=== PATIENT | female | born 1945 | race Caucasian/White ===

== ENCOUNTER → 2017-01-18 | Outpatient (CLI) | payer MEDICARE, BC ==
--- NOTE | 2017-01-19 14:12 | MM ---
Reason for exam: screening (asymptomatic). Last mammogram was performed 1 year ago. History: Patient is postmenopausal and is nulliparous. Physical Findings: A clinical breast exam by your physician is recommended on an annual basis and results should be correlated with mammographic findings. MG 3D Screening Mammo W/Cad Bilateral CC and MLO view(s) were taken. Prior study comparison: January 14, 2016, mammogram, performed at [facility]. There are scattered fibroglandular densities. Finding: There are typically benign round calcifications in both breasts. There is a chronic nodularity in the left axilla. There is no discrete abnormality. ASSESSMENT: Benign, BI-RAD 2 RECOMMENDATION: Routine screening mammogram of both breasts in 1 year.
== END | disposition home or self-care (01) ==
LOC: RADMAMWWP 09:32
PROVIDERS: ATTEND Family Medicine
DX: Z12.31 Encounter for screening mammogram for malignant neoplasm of breast (principal)
CPT/HCPCS: 77063; G0202

== ENCOUNTER → 2017-03-13 | Outpatient (CLI) | payer MEDICARE, BC | END | disposition home or self-care (01) | LOC: LABWHC1 10:07 | PROVIDERS: ATTEND Internal Medicine Endocrinology, Diabetes & Metabolism | DX: E03.8 Other specified hypothyroidism (principal); E55.9 Vitamin D deficiency, unspecified | CPT/HCPCS: 36415; 82306; 84443 ==

== ENCOUNTER 2018-06-19 08:42 | Day surgery (SDC) | payer MEDICARE, BC ==
[2018-06-13 10:49] VITALS: BMI 34.0
[~2018-06-19 08:42] MED LIST: LACTATED RINGERS 1,000 ML IV SCH
[2018-06-19] MEDS: CYCLOPENTOLATE 1% OPHTH SOLN 2 ML BTL OP ONE ×3 (10:59→11:17)
[2018-06-19 11:01] VITALS: RESP 16; TEMP 97.8
[2018-06-19] MEDS: PHENYLEPHRINE 10% OPHTH DROPS 5 ML BTL OP ONE ×3 (11:02→11:20)
[2018-06-19] MEDS: KETOROLAC 0.5% OPHTH DROPS 5 ML BTL OP ONE ×3 (11:05→11:23)
[2018-06-19 11:09] LABS: Glucose,Whole Blood 116 mg/dL (75-99)
[2018-06-19] MEDS ORDERED: LIDOCAINE 1% INJ 10MG/ML (20 ML MDV) ONE (11:40)
[2018-06-19] MEDS ORDERED: PROPOFOL 10 MG/ML 20 ML VIAL IV ONE (11:40)
[2018-06-19] MEDS ORDERED: EPINEPHrine (PF) 0.5 ML in BALANCED SALT IRRIG SOLN COMB2 500 ML IRRIGATION ONE (11:53)
[2018-06-19] MEDS ORDERED: BALANCED SALT IRRIG SOLN COMB2 15 ML IRRIG.SOLN IRRIGATION ONE (11:53)
[2018-06-19] MEDS ORDERED: HYALURONATE SODIUM INTRAOCULAR 1 EACH SYRINGE (10MG/ML) INTRAOCULA ONE (11:54)
--- NOTE | 2018-06-19 12:06 | P.OP ---
Date of Procedure: 06/19/18 Procedure(s) Performed: PREOPERATIVE DIAGNOSIS: Cataract, right eye. POSTOPERATIVE DIAGNOSIS: Cataract, right eye. OPERATION: Phacoemulsification cataract, right eye. DESCRIPTION OF PROCEDURE: The patient was taken to the preoperative holding area. Intravenous Propofol was given so as to bring about adequate sedation. The following mixture was given for local anesthesia: 5 mL of 2% lidocaine, 5 mL of 0.75% Marcaine, and 1 mL of Wydase. Approximately 4 mL was injected in the retrobulbar space of the surgical eye. Additional 1 mL was then directed to the temporal area of the surgical eye. This was performed to allow adequate neurological block of the facial muscles. The patient was revived and then taken into the operative room. The patient was prepped and draped in the usual sterile manner for the operative eye. A lid speculum was put into position. The conjunctiva was resected back from the limbus in the 12 o'clock position. Bleeding was controlled with electrocautery. A #69 blade was then used and a half-thickness scleral incision approximately 1-mm posterior to the limbus was made on bare sclera. This was shelved in the clear cornea using a crescent knife. Next a 15-degree blade was used to make a stab incision at the 3 o' clock position at the corneolimbal interface. Keratome blade was then used and the superior wound was extended into the anterior chamber. Viscoelastic was injected into the anterior chamber and to maintain its form. Next, a cystotome was used and a continuous anterior capsulotomy was made without difficulty. Hydrodissection using a blunt cannula and BSS was performed. Phaco probe was then employed and a groove extending from 12 to 6 o'clock in the lens was created. A Dg wand was used through the stab incision so as to perform a divide and conquer technique. Next an irrigation aspiration probe was utilized and any residual cortex was removed from the eye. Again, viscoelastic was injected into the anterior chamber. An Steven posterior chamber lens implant was placed in the cartridge and injected into the anterior chamber without difficulty. The Sinskey hook was utilized to spin the lens into position. The irrigation and aspiration probe was again employed and any residual viscoelastic was removed from the eye. Then BSS was injected into the limbal stab incision and the anterior chamber re-inflated. The conjunctiva was reapproximated using electrocautery. One drop of 0.25% Timoptic was placed over the corneal along with TobraDex ophthalmic ointment. Two sterile patches and a Holland eye shield were taped into position. The patient was transported to the recovery room in stable condition. Pathology: none sent Condition: stable Disposition: same day
[2018-06-19 12:28] VITALS: BP 130/59; PULSE 60
[2018-06-19] MEDS ORDERED: TIMOLOL 0.5% OPHTH DROPS 5 ML BTL OP ONE (23:00)
[2018-06-19] MEDS ORDERED: BUPIVACAINE (PF) 0.75% 5 ML, HYALURONIDASE, HUMAN RECOMB 150 UNIT, LIDOCAINE 2% (PF) 10... MISCELLANE ONE ×3 (23:00)
[2018-06-19] MEDS ORDERED: GENTAMICIN/PREDNISOL AC OPHTH OINT 3.5GM OPHTHALMIC ONE (23:00)
== END 2018-06-19 12:49 | disposition home or self-care (01) ==
LOC: OR 08:42
PROVIDERS: ATTEND Ophthalmology
DX: H25.13 Age-related nuclear cataract, bilateral (principal); E11.9 Type 2 diabetes mellitus without complications; I10 Essential (primary) hypertension; E07.9 Disorder of thyroid, unspecified; F32.9 Major depressive disorder, single episode, unspecified; K21.9 Gastro-esophageal reflux disease without esophagitis; Z79.82 Long term (current) use of aspirin; Z79.890 Hormone replacement therapy; Z79.899 Other long term (current) drug therapy; Z88.8 Allergy status to other drugs, medicaments and biological substances
CPT/HCPCS: 66984; V2632; J3470; J2001 ×2; J0171; J2704

== ENCOUNTER → 2019-05-24 | Outpatient (CLI) | payer MEDICARE, BC ==
--- NOTE | 2019-05-24 18:50 | US ---
EXAMINATION TYPE: US pelvic limited DATE OF EXAM: 05/24/2019 COMPARISON: None CLINICAL HISTORY: R31.9 Hematuria. TECHNIQUE: Transabdominal (TA). Date of LMP: Patient states she has had a complete hysterectomy and oophorectomy when patient was in her late 20's EXAM MEASUREMENTS: 1. Bilateral Adnexa: wnl 2. Posterior cul-de-sac: wnl IMPRESSION: 1. Normal post hysterectomy and oophorectomy pelvic ultrasound
--- NOTE | 2019-05-27 07:23 | US ---
EXAMINATION TYPE: US kidneys/renal and bladder DATE OF EXAM: 05/24/2019 COMPARISON: NONE CLINICAL HISTORY: 73-year-old female R31.9 Hematuria. TECHNIQUE: Multiple sonographic images of the kidneys and bladder are obtained. FINDINGS: EXAM MEASUREMENTS: Right Kidney: 9.3 x 4.5 x 4.7 cm Left Kidney: 9.3 x 4.5 x 5.0 cm Right Kidney: No hydronephrosis. Left Kidney: No hydronephrosis. 0.4 x 0.2 x 0.4 echogenic focus at the mid pole, probable stone Bladder: Limited evaluation due to under distention. IMPRESSION: 1. No hydronephrosis. 2. 4 mm nonobstructive left midpole renal calculus. 3. Underdistention of the bladder limits its evaluation.
== END | disposition home or self-care (01) ==
LOC: RADUSWWP 14:29
PROVIDERS: ATTEND Family Medicine
DX: N20.0 Calculus of kidney (principal); Z90.710 Acquired absence of both cervix and uterus; Z90.722 Acquired absence of ovaries, bilateral
CPT/HCPCS: 76770; 76857

== ENCOUNTER → 2019-07-10 | Outpatient (CLI) | payer MEDICARE, BC ==
--- NOTE | 2019-07-10 09:17 | CT ---
EXAMINATION TYPE: CT urogram wo/w con DATE OF EXAM: 07/10/2019 COMPARISON: HISTORY: r flank pain hematuria CT DLP: 2512 mGycm CONTRAST: Performed and with IV Contrast, patient injected with 100 mL of Isovue 300. CT Urography was performed with unenhanced followed by enhanced images of the kidneys, ureters and ur inary bladder. Delayed images were obtained. 3d reconstruction was perfromed at a separate work sta tion. FINDINGS: KIDNEYS/BLADDER: No hydronephrosis. No nephrolithiasis. No solid renal lesions identified. Several subcentimeter simple appearing renal cysts noted. Urinary bladder grossly unremarkable. LUNG BASES-: No visible nodule. No infiltrate. LIVER/GB: No calcified gallstones. No space occupying hepatic lesion. Biliary tree is of normal ca liber. PANCREAS: No inflammation. No distinct mass. SPLEEN: No splenic enlargement. No lesion seen. ADRENALS: No nodule. No thickening. BOWEL: Normal appendix. Normal bowel caliber. No inflammation. Sigmoid diverticulosis without diver ticulitis. Fixed hiatal hernia noted small to moderate in size. GENITAL ORGANS: No gross abnormality. LYMPH NODES: No greater than 1cm abdominal or pelvic lymph nodes are appreciated. AORTA: No significant abnormality. OSSEOUS STRUCTURES: Severe degenerative change lumbar spine with vacuum disc noted at initially all l evels. Grade 1 anterolisthesis L5 on S1 of several millimeters. OTHER: No significant additional abnormality is seen. IMPRESSION: 1. No significant abnormality to account for the patient's symptoms of hematuria. Correlate clinicall y.
== END | disposition home or self-care (01) ==
LOC: RADCTMAIN 07:00
PROVIDERS: ATTEND Urology
DX: R31.0 Gross hematuria (principal); Z88.8 Allergy status to other drugs, medicaments and biological substances
CPT/HCPCS: 82565; 84520; 74178; 36415; 74400; Q9967

== ENCOUNTER → 2019-07-26 | Outpatient (CLI) | payer MEDICARE, BC ==
--- NOTE | 2019-07-26 13:38 | US ---
EXAMINATION TYPE: US thyroid st tissue head/neck DATE OF EXAM: 07/26/2019 COMPARISON: NONE CLINICAL HISTORY: E03.9 Hypothyroidism, unspecified. Hypothyroidism on meds for years. GLAND SIZE: Right Lobe: 2.4 x .5 x 1.1 cm Overall Parenchyma: heterogenous Left Lobe: 2.1 x .6 x 1.0 cm Overall Parenchyma: heterogeneous Isthmus Thickness: .2 cm NODULES RIGHT: # of nodules measured on right: 0 LEFT: # of nodules measured on left: 0 ISTHMUS: # of nodules measured in the isthmus: 0 Bilateral neck scanned, no evidence of lymphadenopathy. IMPRESSION: Thyroid lobes are diminutive in size and heterogenous. Correlate with thyroid function testing.
== END | disposition home or self-care (01) ==
LOC: RADUSWWP 13:11
PROVIDERS: ATTEND Family Medicine
DX: E03.9 Hypothyroidism, unspecified (principal)
CPT/HCPCS: 76536

== ENCOUNTER → 2019-10-07 | Outpatient (CLI) | payer MEDICARE, BC | END | disposition home or self-care (01) | LOC: LABWHC1 10:26 | PROVIDERS: ATTEND Internal Medicine Endocrinology, Diabetes & Metabolism | DX: E03.8 Other specified hypothyroidism (principal); E55.9 Vitamin D deficiency, unspecified | CPT/HCPCS: 36415; 82306; 84443 ==

== ENCOUNTER 2020-12-11 03:52 | Inpatient (IN) | payer MEDICARE, BC ==
--- NOTE | 2020-12-11 04:16 | ED ---
Altered Mental Status HPI - General Chief Complaint: Altered Mental Status Stated Complaint: Altered Mental Status Time Seen by Provider: 12/11/20 04:13 Source: family, EMS Mode of arrival: EMS Limitations: altered mental status - History of Present Illness Initial Comments: Patient is 75-year-old woman was reportedly brought to have evaluation for alte red mental status. It is reported that patient had developed upper respiratory symptoms and was seen for code test on Monday which was reportedly negative. She was reportedly given antibiotics to take for the respiratory infection. Over the course of tonight she has become disoriented and less responsive. Patient is not able to give any additional history. She does not know why she is here. MD Complaint: altered mental status, confusion -: hour(s) Consistency of Symptoms: getting worse Associated Symptoms: cough, fever/chills, shortness of breath - Related Data Home Medications Medication Instructions Recorded Confirmed Aspirin 81 mg PO DAILY 06/13/18 12/11/20 Citalopram Hydrobromide [CeleXA] 40 mg PO DAILY 06/13/18 12/11/20 Cyanocobalamin (Vitamin B-12) 5,000 mcg PO DAILY 06/13/18 12/11/20 [Vitamin B12] Levothyroxine Sodium [Synthroid] 88 mcg PO DAILY 06/13/18 12/11/20 Multivitamins, Thera [Multivitamin 1 tab PO DAILY 06/13/18 12/11/20 (formulary)] Omeprazole [PriLOSEC] 20 mg PO AC-BRKFST 06/13/18 12/11/20 Propranolol [Inderal] 10 mg PO BID 06/13/18 12/11/20 amLODIPine [Norvasc] 5 mg PO DAILY 06/13/18 12/11/20 busPIRone HCL 10 mg PO BID 06/13/18 12/11/20 lamoTRIgine [LaMICtal] 25 mg PO BID 06/13/18 12/11/20 Cholecalciferol [Vitamin D3 (25 50 mcg PO DAILY 12/11/20 12/11/20 Mcg = 1000 Iu)] Memantine [Namenda] 10 mg PO BID 12/11/20 12/11/20 Pioglitazone [Actos] 15 mg PO DAILY 12/11/20 12/11/20 QUEtiapine [SEROquel] 25 mg PO HS 12/11/20 12/11/20 Allergies Allergy/AdvReac Type Severity Reaction Status Date / Time Beta-Blockers AdvReac CHRONIC Verified 12/11/20 07:06 (Beta-Adrenergic Bloc COUGH Review of Systems ROS Statement: Those systems with pertinent positive or pertinent negative responses have been documented in the HPI. ROS Other: All systems not noted in ROS Statement are negative. Limitations: ROS unobtainable due to patients medical condition Constitutional: Reports: fever Respiratory: Reports: cough, dyspnea Past Medical History Past Medical History: Diabetes Mellitus, Hyperlipidemia, Hypertension, Osteoarthritis (OA), Thyroid Disorder Additional Past Medical History / Comment(s): TREMORS LEFT ARM , History of Any Multi-Drug Resistant Organisms: None Reported Past Surgical History: Bladder Surgery, Hysterectomy, Joint Replacement Additional Past Surgical History / Comment(s): TOTAL RIGHT KNEE, NECK SURGERY, Past Anesthesia/Blood Transfusion Reactions: No Reported Reaction Past Psychological History: Anxiety Past Alcohol Use History: Rare Past Drug Use History: None Reported - Past Family History Mother Family Medical History: No Reported History General Exam Limitations: language barrier, altered mental status General appearance: obtunded Head exam: Present: atraumatic, normocephalic Eye exam: Present: normal appearance. Absent: scleral icterus, conjunctival injection ENT exam: Present: normal oropharynx Neck exam: Present: normal inspection Respiratory exam: Present: rales. Absent: wheezes, rhonchi, stridor, accessory muscle use Cardiovascular Exam: Present: regular rate, normal rhythm, normal heart sounds. Absent: systolic murmur, diastolic murmur, rubs, gallop GI/Abdominal exam: Present: soft. Absent: distended, tenderness, guarding, rebound, rigid Extremities exam: Present: normal inspection, normal capillary refill. Absent: pedal edema, calf tenderness Back exam: Present: normal inspection Neurological exam: Present: altered, CN II-XII intact, other (The patient is not able to fully comply with neurologic exam however does move all 4 extremities and does not appear to have gross sensory deficit). Absent: oriented X3 (Patient is oriented to person only), motor sensory deficit Skin exam: Present: warm, dry, intact, normal color. Absent: rash Course Vital Signs 12/11/20 12/11/20 12/11/20 03:54 04:42 05:00 Temperature 101.7 F H 104.6 F H Pulse Rate 81 74 Respiratory 20 18 20 Rate Blood Pressure 143/93 O2 Sat by Pulse 91 L 99 Oximetry 12/11/20 05:58 Temperature 101.5 F H Pulse Rate 76 Respiratory 18 Rate Blood Pressure 108/90 O2 Sat by Pulse 92 L Oximetry - Reevaluation(s) Reevaluation #1: 12/11/20 06:06 Fluids based on ideal body weight Medical Decision Making - Lab Data Result diagrams: 12/11/20 04:41 12/11/20 04:41 Lab Results 12/11/20 12/11/20 12/11/20 Range/Units 04:15 04:41 04:41 WBC 9.5 (3.8-10.6) k/uL RBC 4.51 (3.80-5.40) m/uL Hgb 14.1 (11.4-16.0) gm/dL Hct 40.9 (34.0-46.0) % MCV 90.8 (80.0-100.0) fL MCH 31.2 (25.0-35.0) pg MCHC 34.4 (31.0-37.0) g/dL RDW 13.3 (11.5-15.5) % Plt Count 160 (150-450) k/uL MPV 7.8 Neutrophils % 80 % Lymphocytes % 12 % Monocytes % 7 % Eosinophils % 1 % Basophils % 0 % Neutrophils # 7.6 (1.3-7.7) k/uL Lymphocytes # 1.1 (1.0-4.8) k/uL Monocytes # 0.7 (0-1.0) k/uL Eosinophils # 0.1 (0-0.7) k/uL Basophils # 0.0 (0-0.2) k/uL PT 10.5 (9.0-12.0) sec INR 1.0 (<1.2) APTT 22.7 (22.0-30.0) sec D-Dimer (<0.60) mg/L FEU Sodium (137-145) mmol/L Potassium (3.5-5.1) mmol/L Chloride (98-107) mmol/L Carbon Dioxide (22-30) mmol/L Anion Gap mmol/L BUN (7-17) mg/dL Creatinine (0.52-1.04) mg/dL Est GFR (CKD-EPI)AfAm (>60 ml/min/1.73 sqM) Est GFR (CKD-EPI)NonAf (>60 ml/min/1.73 sqM) Glucose (74-99) mg/dL Plasma Lactic Acid Rk (0.7-2.0) mmol/L Calcium (8.4-10.2) mg/dL Total Bilirubin (0.2-1.3) mg/dL AST (14-36) U/L ALT (4-34) U/L Alkaline Phosphatase (38-126) U/L Troponin I 0.065 H* (0.000-0.034) ng/mL Total Protein (6.3-8.2) g/dL Albumin (3.5-5.0) g/dL Urine Color Urine Appearance (Clear) Urine pH (5.0-8.0) Ur Specific [place] (1.001-1.035) Urine Protein (Negative) Urine Glucose (UA) (Negative) Urine Ketones (Negative) Urine Blood (Negative) Urine Nitrite (Negative) Urine Bilirubin (Negative) Urine Urobilinogen (<2.0) mg/dL Ur Leukocyte Esterase (Negative) Coronavirus (PCR) (Not Detectd) 12/11/20 12/11/20 12/11/20 Range/Units 04:41 04:41 04:41 WBC (3.8-10.6) k/uL RBC (3.80-5.40) m/uL Hgb (11.4-16.0) gm/dL Hct (34.0-46.0) % MCV (80.0-100.0) fL MCH (25.0-35.0) pg MCHC (31.0-37.0) g/dL RDW (11.5-15.5) % Plt Count (150-450) k/uL MPV Neutrophils % % Lymphocytes % % Monocytes % % Eosinophils % % Basophils % % Neutrophils # (1.3-7.7) k/uL Lymphocytes # (1.0-4.8) k/uL Monocytes # (0-1.0) k/uL Eosinophils # (0-0.7) k/uL Basophils # (0-0.2) k/uL PT (9.0-12.0) sec INR (<1.2) APTT (22.0-30.0) sec D-Dimer (<0.60) mg/L FEU Sodium 132 L (137-145) mmol/L Potassium 4.1 (3.5-5.1) mmol/L Chloride 103 (98-107) mmol/L Carbon Dioxide 22 (22-30) mmol/L Anion Gap 7 mmol/L BUN 23 H (7-17) mg/dL Creatinine 0.89 (0.52-1.04) mg/dL Est GFR (CKD-EPI)AfAm 74 (>60 ml/min/1.73 sqM) Est GFR (CKD-EPI)NonAf 64 (>60 ml/min/1.73 sqM) Glucose 101 H (74-99) mg/dL Plasma Lactic Acid Rk 0.9 (0.7-2.0) mmol/L Calcium 8.3 L (8.4-10.2) mg/dL Total Bilirubin 0.6 (0.2-1.3) mg/dL AST 30 (14-36) U/L ALT 19 (4-34) U/L Alkaline Phosphatase 86 (38-126) U/L Troponin I (0.000-0.034) ng/mL Total Protein 6.2 L (6.3-8.2) g/dL Albumin 3.6 (3.5-5.0) g/dL Urine Color Light Yellow Urine Appearance Clear (Clear) Urine pH 7.5 (5.0-8.0) Ur Specific [place] 1.014 (1.001-1.035) Urine Protein Negative (Negative) Urine Glucose (UA) Negative (Negative) Urine Ketones Negative (Negative) Urine Blood Negative (Negative) Urine Nitrite Negative (Negative) Urine Bilirubin Negative (Negative) Urine Urobilinogen <2.0 (<2.0) mg/dL Ur Leukocyte Esterase Negative (Negative) Coronavirus (PCR) (Not Detectd) 12/11/20 12/11/20 Range/Units 04:41 04:45 WBC (3.8-10.6) k/uL RBC (3.80-5.40) m/uL Hgb (11.4-16.0) gm/dL Hct (34.0-46.0) % MCV (80.0-100.0) fL MCH (25.0-35.0) pg MCHC (31.0-37.0) g/dL RDW (11.5-15.5) % Plt Count (150-450) k/uL MPV Neutrophils % % Lymphocytes % % Monocytes % % Eosinophils % % Basophils % % Neutrophils # (1.3-7.7) k/uL Lymphocytes # (1.0-4.8) k/uL Monocytes # (0-1.0) k/uL Eosinophils # (0-0.7) k/uL Basophils # (0-0.2) k/uL PT (9.0-12.0) sec INR (<1.2) APTT (22.0-30.0) sec D-Dimer 0.48 (<0.60) mg/L FEU Sodium (137-145) mmol/L Potassium (3.5-5.1) mmol/L Chloride (98-107) mmol/L Carbon Dioxide (22-30) mmol/L Anion Gap mmol/L BUN (7-17) mg/dL Creatinine (0.52-1.04) mg/dL Est GFR (CKD-EPI)AfAm (>60 ml/min/1.73 sqM) Est GFR (CKD-EPI)NonAf (>60 ml/min/1.73 sqM) Glucose (74-99) mg/dL Plasma Lactic Acid Rk (0.7-2.0) mmol/L Calcium (8.4-10.2) mg/dL Total Bilirubin (0.2-1.3) mg/dL AST (14-36) U/L ALT (4-34) U/L Alkaline Phosphatase (38-126) U/L Troponin I (0.000-0.034) ng/mL Total Protein (6.3-8.2) g/dL Albumin (3.5-5.0) g/dL Urine Color Urine Appearance (Clear) Urine pH (5.0-8.0) Ur Specific [place] (1.001-1.035) Urine Protein (Negative) Urine Glucose (UA) (Negative) Urine Ketones (Negative) Urine Blood (Negative) Urine Nitrite (Negative) Urine Bilirubin (Negative) Urine Urobilinogen (<2.0) mg/dL Ur Leukocyte Esterase (Negative) Coronavirus (PCR) Detected A (Not Detectd) - EKG Data -: EKG Interpreted by Me EKG shows normal: sinus rhythm, axis (Normal), intervals (Normal), QRS complexes (Normal), ST-T waves (Normal) Rate: normal (Rate 78) Interpretation: normal EKG Disposition Clinical Impression: COVID-19, Acute delirium Disposition: ADMITTED IP TO THIS [facility] Condition: Fair
[2020-12-11] MEDS ORDERED: ACETAMINOPHEN TAB 325 MG TAB PO STA (04:48)
[2020-12-11 04:57] LABS: Basophils % (A) 0 %; Eosinophils # (A) 0.1 k/uL (0-0.7); Eosinophils % (A) 1 %; HCT 40.9 % (34.0-46.0); HGB 14.1 gm/dL (11.4-16.0); Lymphocytes # (A) 1.1 k/uL (1.0-4.8); Lymphocytes % (A) 12 %; MCH 31.2 pg (25.0-35.0); MCHC 34.4 g/dL (31.0-37.0); MCV 90.8 fL (80.0-100.0); Mean Platelet Volume 7.8; Monocytes # (A) 0.7 k/uL (0-1.0); Monocytes % (A) 7 %; Neutrophils # (A) 7.6 k/uL (1.3-7.7); Neutrophils % (A) 80 %; Platelet Count 160 k/uL (150-450); RBC 4.51 m/uL (3.80-5.40); RDW 13.3 % (11.5-15.5); WBC 9.5 k/uL (3.8-10.6)
--- NOTE | 2020-12-11 04:58 | XR ---
EXAM: XR Chest, 1 View CLINICAL HISTORY: Fever TECHNIQUE: Frontal view of the chest. COMPARISON: No relevant prior studies available. FINDINGS: Lungs: Mild diffuse airspace opacities in both lungs. Pleural space: Unremarkable. No pneumothorax. Heart: suspect cardiomegaly. Mediastinum: Unremarkable. Bones/joints: Osteopenia. ACDF of lower cervical spine. IMPRESSION: Mild pulmonary edema versus bilateral pneumonia
[2020-12-11 05:09] LABS: Albumin 3.6 g/dL (3.5-5.0); Calcium 8.3 mg/dL (8.4-10.2); Potassium 4.1 mmol/L (3.5-5.1); Total Bilirubin 0.6 mg/dL (0.2-1.3); Total Protein 6.2 g/dL (6.3-8.2)
[2020-12-11 05:10] LABS: Partial Thromboplastin Time 22.7 sec (22.0-30.0); Prothrombin Time 10.5 sec (9.0-12.0)
[2020-12-11 05:15] LABS: Appearance,Urine Clear (Clear); Bilirubin,Urine Negative (Negative); Blood,Urine Negative (Negative); Color,Urine Light Yellow; Glucose,Urine (UA) Negative (Negative); Ketones,Urine Negative (Negative); Leukocyte Esterase,Urine Negative (Negative); Nitrite,Urine Negative (Negative); PH, Urine 7.5 (5.0-8.0); Protein,Urine Negative (Negative); Specific Gravity,Urine 1.014 (1.001-1.035); Urobilinogen,Urine <2.0 mg/dL (<2.0)
[2020-12-11] MEDS ORDERED: SODIUM CHLORIDE 0.9% 1,000 ML IV ONE (06:06)
[2020-12-11] MEDS ORDERED: SODIUM CHLORIDE 0.9% 1,000 ML IV STA (06:06)
[2020-12-11] MEDS ORDERED: DEXAMETHASONE SOD PHOSPHATE 4 MG/ML 1 ML VIAL IV STA (06:10)
[2020-12-11] MEDS ORDERED: NALOXONE 0.4 MG/ML 1 ML VIAL IV PRN (06:33)
[2020-12-11] MEDS ORDERED: ACETAMINOPHEN TAB 325 MG TAB PO PRN (06:33)
[2020-12-11] MEDS ORDERED: HEPARIN SODIUM,PORCINE/PF 5,000 UNIT/0.5 ML SYRINGE SQ SCH (08:00)
[2020-12-11] MEDS: lamoTRIgine 25 MG TAB PO SCH ×2 (09:23→21:59)
[2020-12-11] MEDS: ASPIRIN 81 MG PO SCH (09:23)
[2020-12-11] MEDS: CITALOPRAM HYDROBROMIDE 20 MG TAB PO SCH (09:23)
[2020-12-11] MEDS: FAMOTIDINE 20 MG TAB PO SCH ×2 (09:23→21:57)
[2020-12-11] MEDS: LINAGLIPTIN 5 MG TABLET PO SCH (09:24)
[2020-12-11] MEDS: CHOLECALCIFEROL 25 MCG (1000 IU) TABLET PO SCH (09:24)
[2020-12-11] MEDS: LEVOTHYROXINE 88 MCG TAB PO SCH (09:24)
[2020-12-11] MEDS: DEXAMETHASONE SOD PHOSPHATE 10 MG/ML 1 ML VIAL IV SCH (09:24)
[2020-12-11] MEDS: MULTIVITAMINS, THERA 1 EACH TAB PO SCH (09:24)
[2020-12-11] MEDS: ATORVASTATIN 20 MG TAB PO SCH (09:24)
[2020-12-11] MEDS: busPIRone HCl 10 MG TAB PO SCH ×2 (09:24→21:59)
[2020-12-11] MEDS: amLODIPine 5 MG TAB PO SCH (09:24)
[2020-12-11] MEDS: CYANOCOBALAMIN 500 MCG TAB PO SCH (09:25)
[2020-12-11] MEDS: PROPRANOLOL 10 MG TAB PO SCH (09:25)
--- NOTE | 2020-12-11 15:35 | P.CNPUL ---
History of Present Illness Consult date: 12/11/20 Requesting physician: Cassius Forrest Reason for consult: other Chief complaint: Altered mental status History of present illness: 75-year-old white female patient who is a poor historian, with past medical history of hypertension, hyperlipidemia, diabetes mellitus, osteoarthritis, hypothyroidism, anxiety, who was brought into the emergency department on 12/11/2020 at 4:00 in the morning per EMS for evaluation of altered mental status. Apparently patient had developed upper respiratory symptoms and was tested for COVID 19 which was reportedly negative. She was given antibiotics for the infection, however she was increasingly more disoriented and last night she was less responsive and she was brought in to be evaluated. Patient tested positive for COVID 19 in the ER. CBC showed white blood cell count of 9.5, hemoglobin is 14.1, d-dimer is 0.48, sodium is 132, the rest of electrolytes were unremarkable, BUN is 23, creatinine is 0.89 plasma lactic acid 0.9. LFTs were within normal limits, there was a troponin leak of 0.065, and 0.062, patient denies any shortness of breath, she seems to be breathing comfortably, she is a poor historian, she is confused, she does not know the place or the mouth or the year or the president, no cough, lung sounds reveal some mild crackles, no wheezing, no cough no hemoptysis, urinalysis is without sign of infection. Patient is currently on 3 L of oxygen pulse ox is 93%. Patient was febrile on presentation with a T-max of 104.6F. Chest x-ray showed mild diffuse airspace opacities in both lungs. While she is resting fairly comfortably on the gurney in the emergency department awaiting a bed to go to medical surgical floor. Review of Systems ROS unobtainable: due to mental status All systems: negative Constitutional: Reports weakness, Denies chills, Denies fever Eyes: denies blurred vision, denies pain Ears, nose, mouth and throat: Denies headache, Denies sore throat Cardiovascular: Denies chest pain, Denies shortness of breath Respiratory: Reports cough Gastrointestinal: Denies abdominal pain, Denies diarrhea, Denies nausea, Denies vomiting Genitourinary: Denies dysuria, Denies hematuria Musculoskeletal: Denies myalgias Integumentary: Denies pruritus, Denies rash Neurological: Reports as per HPI, Reports change in mentation, Denies numbness, Denies weakness Psychiatric: Denies anxiety, Denies depression Endocrine: Denies fatigue, Denies weight change Past Medical History Past Medical History: Diabetes Mellitus, Hyperlipidemia, Hypertension, Osteoarthritis (OA), Thyroid Disorder Additional Past Medical History / Comment(s): TREMORS LEFT ARM , History of Any Multi-Drug Resistant Organisms: None Reported Past Surgical History: Bladder Surgery, Hysterectomy, Joint Replacement Additional Past Surgical History / Comment(s): TOTAL RIGHT KNEE, NECK SURGERY, Past Anesthesia/Blood Transfusion Reactions: No Reported Reaction Past Psychological History: Anxiety Past Alcohol Use History: Rare Past Drug Use History: None Reported - Past Family History Mother Family Medical History: No Reported History Medications and Allergies Home Medications Medication Instructions Recorded Confirmed Type Aspirin 81 mg PO DAILY 06/13/18 12/11/20 History Citalopram Hydrobromide [CeleXA] 40 mg PO DAILY 06/13/18 12/11/20 History Cyanocobalamin (Vitamin B-12) 5,000 mcg PO DAILY 06/13/18 12/11/20 History [Vitamin B12] Levothyroxine Sodium [Synthroid] 88 mcg PO DAILY 06/13/18 12/11/20 History Multivitamins, Thera [Multivitamin 1 tab PO DAILY 06/13/18 12/11/20 History (formulary)] Omeprazole [PriLOSEC] 20 mg PO AC-BRKFST 06/13/18 12/11/20 History Propranolol [Inderal] 10 mg PO BID 06/13/18 12/11/20 History amLODIPine [Norvasc] 5 mg PO DAILY 06/13/18 12/11/20 History busPIRone HCL 10 mg PO BID 06/13/18 12/11/20 History lamoTRIgine [LaMICtal] 25 mg PO BID 06/13/18 12/11/20 History Azithromycin [Zithromax Z-pack (6 See Taper PO DIRECTED 12/11/20 12/11/20 History tabs)] Cholecalciferol [Vitamin D3 (25 50 mcg PO DAILY 12/11/20 12/11/20 History Mcg = 1000 Iu)] Dexamethasone [Decadron] 6 mg PO DAILY 12/11/20 12/11/20 History Fluticasone/Umeclidin/Vilanter 1 puff INHALATION RT-DAILY 12/11/20 12/11/20 History [Trelegy Ellipta 100-62.5-25] Magnesium Oxide [Magox 400] 400 mg PO DAILY 12/11/20 12/11/20 History Memantine [Namenda] 10 mg PO BID 12/11/20 12/11/20 History Pioglitazone [Actos] 15 mg PO DAILY 12/11/20 12/11/20 History QUEtiapine [SEROquel] 25 mg PO HS 12/11/20 12/11/20 History Allergies Allergy/AdvReac Type Severity Reaction Status Date / Time Beta-Blockers AdvReac CHRONIC Verified 12/11/20 07:06 (Beta-Adrenergic Bloc COUGH Physical Exam Vitals: Vital Signs Temp Pulse Resp BP Pulse Ox 12/11/20 14:00 70 18 100/58 93 L 12/11/20 13:00 75 18 129/73 93 L 12/11/20 12:00 77 18 150/69 93 L 12/11/20 11:00 75 18 93 L 12/11/20 10:00 18 93 L 12/11/20 09:25 75 18 121/81 93 L 12/11/20 08:48 98.2 F 75 18 118/78 93 L 12/11/20 05:58 101.5 F H 76 18 108/90 92 L 12/11/20 05:00 20 12/11/20 04:42 104.6 F H 74 18 99 12/11/20 03:54 101.7 F H 81 20 143/93 91 L Intake and Output 12/11/20 12/11/20 12/11/20 06:59 14:59 22:59 Other: Weight 79.379 kg GENERAL EXAM: Alert, but confused, 75-year-old white female currently on 3 L of oxygen with a pulse ox of 93%, resting comfortably on the gurney, she is disoriented to place and the time, she cannot recall why she is in the hospital, but breathing comfortably, no cough comfortable in no apparent distress. HEAD: Normocephalic/atraumatic. EYES: Normal reaction of pupils, equal size. Conjunctiva pink, sclera white. NOSE: Clear with pink turbinates. THROAT: No erythema or exudates. NECK: No masses, no JVD, no thyroid enlargement, no adenopathy. CHEST: No chest wall deformity. Symmetrical expansion. LUNGS: Equal air entry with no crackles, wheeze, rhonchi or dullness. CVS: Regular rate and rhythm, normal S1 and S2, no gallops, no murmurs, no rubs ABDOMEN: Soft, nontender. No hepatosplenomegaly, normal bowel sounds, no guarding or rigidity. EXTREMITIES: No clubbing, no edema, no cyanosis, 2+ pulses and upper and lower extremities. MUSCULOSKELETAL: Muscle strength and tone normal. SPINE: No scoliosis or deformity SKIN: No rashes CENTRAL NERVOUS SYSTEM: Alert and oriented -1. No focal deficits, tone is normal in all 4 extremities. Results - Laboratory Findings CBC and BMP: 12/11/20 04:41 12/11/20 04:41 PT/INR, D-dimer PT 10.5 sec (9.0-12.0) 12/11/20 04:41 INR 1.0 (<1.2) 12/11/20 04:41 D-Dimer 0.48 mg/L FEU (<0.60) 12/11/20 04:41 Abnormal lab findings: Abnormal Labs 12/11/20 12/11/20 12/11/20 04:15 04:41 04:45 Sodium 132 L BUN 23 H Glucose 101 H Calcium 8.3 L Troponin I 0.065 H* Total Protein 6.2 L Coronavirus (PCR) Detected A 12/11/20 07:28 Sodium BUN Glucose Calcium Troponin I 0.062 H* Total Protein Coronavirus (PCR) - Diagnostic Findings Chest x-ray: report reviewed, image reviewed Assessment and Plan Plan: Assessment: #1. Altered mental status, of unclear etiology, we will obtain brain CT without contrast #2. Acute COVID 19 pneumonia with hypoxic respiratory failure, the onset of symptoms is unclear patient is a poor historian, she had a positive COVID 19 test last Monday 6 days ago after having symptoms of upper respiratory infection. The timeline of symptom onset is unclear #3. Mild troponin leak, echocardiogram is pending #4. Mild hyponatremia, possibly hypovolemic #5. Hypertension #6. Hyperlipidemia #7. Diabetes mellitus type 2 #9. Hypothyroidism #10. Osteoarthritis #11. Anxiety Plan: Timeline of symptom onset is unclear, although the patient did have positive COVID 19 test last Monday according to the ED documentation. Currently appears to be in no acute distress, chest x-ray reviewed showing mild diffuse airspace opacities, will continue with current treatment, continue Decadron, we'll switch the subcu heparin to Lovenox 40 mg, continue vitamins, obtain CT of the brain without. Continue monitoring for worsening dyspnea hypoxia. Pro- calcitonin is pending, echocardiogram is pending. Continue to follow I performed a history & physical examination of the patient and discussed their management with my nurse practitioner, Katiuska Keane. I reviewed the nurse practitioner's note and agree with the documented findings and plan of care. Lung sounds are positive for diminished breath sounds with minimal crackles at the bases. The findings and the impression was discussed with the patient. I attest to the documentation by the nurse practitioner. Time with Patient: Greater than 30
--- NOTE | 2020-12-11 16:21 | CT ---
EXAMINATION TYPE: CT brain wo con DATE OF EXAM: 12/11/2020 COMPARISON: None HISTORY: 75 year-old female confusion, Altered mental status TECHNIQUE: Examination was done in axial plane without intravenous contrast. Coronal and sagittal r econstructions performed. CT DLP: 1115.4 mGycm Automated exposure control for dose reduction was used. FINDINGS: There is no evidence of acute intracranial hemorrhage, acute ischemic changes, mass, mass-effect, or extra-axial fluid collection. There is no effacement of cerebral sulci or basal subarachnoid cister ns. There is no hydrocephalus. There is no midline shift. Plata-white matter distinction is preserv ed. Presacral thickening ethmoid air cells. Mastoid air cells are pneumatized. Partially empty sella. Pro static calcifications are mild in the carotid siphons. Moderate bifrontal atrophy. Moderate patchy white matter hypodensities in both cerebral hemispheres. IMPRESSION: Moderate bifrontal atrophy and moderate patchy burden of chronic small vessel ischemic disease. No ac sun'aq intracranial abnormality seen.
--- NOTE | 2020-12-11 16:41 | P.HPIM ---
History of Present Illness H&P Date: 12/11/20 Chief Complaint: Increase in confusion History of presenting complaint: This is a 75-year-old patient who follows with Dr. Kory Pearce. Chronic stable medical conditions include diabetes, hypertension, hyperlipidemia, prostatitis, hypothyroid. Patient has a baseline dementia. With cognitive impairment. 5 days ago on Monday patient is having upper respiratory tract infection symptoms. Apparently patient tested negative for COVID. Was given antibiotics to go home with. Last night patient became increasingly confused and less responsive. Brought into the ER. Patient is found to be a bit delirious with a fever up to 104.6. And pulse ox this morning was 92% on 3 L. Patient not able to give much of a history. Because underlying dementia. She is only able to answer simple questions. She does not know why she is or why she is here. When I walked in the room she was talking to her on the phone, making simple conversation Review of systems: GEN.: Tired febrile EYES: None HEENT: None NECK: None RESPIRATORY: Respiratory symptoms CARDIOVASCULAR: None GASTROINTESTINAL: None GENITOURINARY: None MUSCULOSKELETAL: Some joint pains LYMPHATICS: None HEMATOLOGICAL: None PSYCHIATRY: Confusion NEUROLOGICAL: None Past medical history to include: Diabetes, hypertension, hyperlipidemia, osteoarthritis, hypothyroid, tremor in the left arm, anxiety Social history: Lives with her . Smoking for over 40 years about quarter pack a day. Alcohol rarely. Family history: Patient cannot tell Physical examination: VITAL SIGNS: 104.6, 74, 18, 108/90, 92% on 3 L GENERAL: BMI 34.2, laying in bed, not in distress. EYES: Pupils equal. Conjunctiva normal. HEENT: External appearance of nose and ears normal, oral cavity grossly normal. NECK: JVD not raised; masses not palpable. HEART: First and second heart sounds are normal; no edema. LUNGS: Respiratory rate increased, diminished breath sounds prolonged expiration. ABDOMEN: Soft, nontender, liver spleen not palpable, no masses palpable. MUSCULAR skeletal: Evidence of OA PSYCH: Patient knows her name, does not know why she is a why she is herel. NEUROLOGICAL: Cranial nerves grossly intact; no facial asymmetry, power and sensation grossly intact. LYMPHATICS: No lymph nodes palpable in the axilla and neck INVESTIGATIONS, reviewed in the clinical context: WBC 9.5 hemoglobin 14.1 platelets 160 potassium 4.1 creatinine 0.89 Troponin I 0.065, 0.062, UA-negative Coronavirus [PCR]-detected EKG tracing personally reviewed by me-normal sinus rhythm, poor quality baseline Chest x-ray film personally reviewed by me-bilateral infiltrates Assessment and plan: -Acute bilateral COVID 19 pneumonia with symptoms starting about 6 days ago. Patient placed on IV Decadron subcu Lovenox vitamin C vitamin D Zinc Pepcid. Pulmonary was consulted -Sepsis from COVID 19 pneumonia IV fluids -Acute hypoxic respiratory failure from pneumonia Patient on 2 L of supplemental oxygen -Acute delirium from sepsis Follow closely -Major cognitive impairment from underlying Alzheimer's dementia late onset type Continue with Namenda Seroquel -COPD in a current smoker Continue with home inhalers bronchodilators -Chronic nicotine dependence patient cigarette smoker At nicotine patch -Diabetes mellitus type 2 on oral hypoglycemic Expect Accu-Cheks to climb because of dexamethasone. Follow Accu-Cheks and coverage -Hypothyroid Continue with Synthroid -Essential hypertension Continue with amlodipine and propofol Patient be admitted to the hospital. Fall precautions. Given the complexity and severity of patient's condition expect the patient to be in the hospital at least for 2 overnights Past Medical History Past Medical History: Diabetes Mellitus, Hyperlipidemia, Hypertension, Osteoarthritis (OA), Thyroid Disorder Additional Past Medical History / Comment(s): TREMORS LEFT ARM , History of Any Multi-Drug Resistant Organisms: None Reported Past Surgical History: Bladder Surgery, Hysterectomy, Joint Replacement Additional Past Surgical History / Comment(s): TOTAL RIGHT KNEE, NECK SURGERY, Past Anesthesia/Blood Transfusion Reactions: No Reported Reaction Past Psychological History: Anxiety Past Alcohol Use History: Rare Past Drug Use History: None Reported - Past Family History Mother Family Medical History: No Reported History Medications and Allergies Home Medications Medication Instructions Recorded Confirmed Type Aspirin 81 mg PO DAILY 06/13/18 12/11/20 History Citalopram Hydrobromide [CeleXA] 40 mg PO DAILY 06/13/18 12/11/20 History Cyanocobalamin (Vitamin B-12) 5,000 mcg PO DAILY 06/13/18 12/11/20 History [Vitamin B12] Levothyroxine Sodium [Synthroid] 88 mcg PO DAILY 06/13/18 12/11/20 History Multivitamins, Thera [Multivitamin 1 tab PO DAILY 06/13/18 12/11/20 History (formulary)] Omeprazole [PriLOSEC] 20 mg PO AC-BRKFST 06/13/18 12/11/20 History Propranolol [Inderal] 10 mg PO BID 06/13/18 12/11/20 History amLODIPine [Norvasc] 5 mg PO DAILY 06/13/18 12/11/20 History busPIRone HCL 10 mg PO BID 06/13/18 12/11/20 History lamoTRIgine [LaMICtal] 25 mg PO BID 06/13/18 12/11/20 History Azithromycin [Zithromax Z-pack (6 See Taper PO DIRECTED 12/11/20 12/11/20 History tabs)] Cholecalciferol [Vitamin D3 (25 50 mcg PO DAILY 12/11/20 12/11/20 History Mcg = 1000 Iu)] Dexamethasone [Decadron] 6 mg PO DAILY 12/11/20 12/11/20 History Fluticasone/Umeclidin/Vilanter 1 puff INHALATION RT-DAILY 12/11/20 12/11/20 History [Trelegy Ellipta 100-62.5-25] Magnesium Oxide [Magox 400] 400 mg PO DAILY 12/11/20 12/11/20 History Memantine [Namenda] 10 mg PO BID 12/11/20 12/11/20 History Pioglitazone [Actos] 15 mg PO DAILY 12/11/20 12/11/20 History QUEtiapine [SEROquel] 25 mg PO HS 12/11/20 12/11/20 History Allergies Allergy/AdvReac Type Severity Reaction Status Date / Time Beta-Blockers AdvReac CHRONIC Verified 12/11/20 07:06 (Beta-Adrenergic Bloc COUGH Physical Exam Vitals: Vital Signs Temp Pulse Resp BP Pulse Ox 12/11/20 09:25 75 18 121/81 93 L 12/11/20 08:48 98.2 F 75 18 118/78 93 L 12/11/20 05:58 101.5 F H 76 18 108/90 92 L 12/11/20 05:00 20 12/11/20 04:42 104.6 F H 74 18 99 12/11/20 03:54 101.7 F H 81 20 143/93 91 L Intake and Output 12/10/20 12/11/20 12/11/20 22:59 06:59 14:59 Other: Weight 79.379 kg Results CBC & Chem 7: 12/11/20 04:41 12/11/20 04:41 Labs: Abnormal Lab Results - Last 24 Hours (Table) 12/11/20 12/11/20 12/11/20 Range/Units 04:15 04:41 04:45 Sodium 132 L (137-145) mmol/L BUN 23 H (7-17) mg/dL Glucose 101 H (74-99) mg/dL Calcium 8.3 L (8.4-10.2) mg/dL Troponin I 0.065 H* (0.000-0.034) ng/mL Total Protein 6.2 L (6.3-8.2) g/dL Coronavirus (PCR) Detected A (Not Detectd) 12/11/20 Range/Units 07:28 Sodium (137-145) mmol/L BUN (7-17) mg/dL Glucose (74-99) mg/dL Calcium (8.4-10.2) mg/dL Troponin I 0.062 H* (0.000-0.034) ng/mL Total Protein (6.3-8.2) g/dL Coronavirus (PCR) (Not Detectd)
[2020-12-11] MEDS: ASCORBIC ACID 500 MG TAB PO SCH (18:04)
[2020-12-11] MEDS: ZINC SULFATE 220 MG CAP PO SCH (18:04)
[2020-12-11] MEDS: SODIUM CHLORIDE 0.9% 1,000 ML IV SCH (18:04)
--- NOTE | 2020-12-11 18:30 | ECHOF ---
Referral Reason:pos troponin MEASUREMENTS -------- HEIGHT: 152.4 cm WEIGHT: 79.4 kg BP: 100/58 IVSd: 1.3 cm (0.6 - 1.1) LVIDd: 4.1 cm (3.9 - 5.3) LVPWd: 1.2 cm (0.6 - 1.1) IVSs: 1.9 cm LVIDs: 2.7 cm LVPWs: 1.8 cm LAESV Index (A-L): 32.98 ml/m MV E Oliverio: 0.81 m/s MV DecT: 227 ms MV A Oliverio: 0.94 m/s MV E/A Ratio: 0.87 RAP: 5.00 mmHg RVSP: 13.29 mmHg FINDINGS -------- Sinus rhythm. This was a technically difficult study with suboptimal views. The left ventricular size is normal. There is mild concentric left ventricular hypertrophy. Overa ll left ventricular systolic function is normal with, an EF between 55 - 60 %. The diastolic fillin g pattern is normal for the age of the patient 14.10. The right ventricle is normal in size. LA is midly dilated 29-33ml/m2. The right atrial size is normal. Lumason used Interatrial and interventricular septum intact. There is no evidence of aortic regurgitation. There is no evidence of aortic stenosis. Mild mitral regurgitation is present. Mild tricuspid regurgitation present. There is no evidence of pulmonary hypertension. The right v entricular systolic pressure, as measured by Doppler, is 13.29mmHg. There is no pulmonic regurgitation present. The aortic root size is normal. IVC Not well visulized. There is no pericardial effusion. CONCLUSIONS -------- 1. The left ventricular size is normal. 2. There is mild concentric left ventricular hypertrophy. 3. Overall left ventricular systolic function is normal with, an EF between 55 - 60 %. 4. The diastolic filling pattern is normal for the age of the patient 14.10 5. LA is midly dilated 29-33ml/m2. 6. Mild mitral regurgitation is present. 7. Mild tricuspid regurgitation present. COPPER TAPPER: Sarina Staples [facility]
[2020-12-11 21:29] LABS: Glucose,Whole Blood 184 mg/dL (75-99)
[2020-12-12] MEDS: SODIUM CHLORIDE 0.9% 1,000 ML IV SCH ×4 (01:08→23:06)
[2020-12-12 06:17] LABS: Glucose,Whole Blood 134 mg/dL (75-99)
[2020-12-12] MEDS: LEVOTHYROXINE 88 MCG TAB PO SCH (06:33)
[2020-12-12] MEDS: amLODIPine 5 MG TAB PO SCH (08:43)
[2020-12-12] MEDS: ENOXAPARIN 40 MG/0.4 ML SYRINGE SQ SCH (08:43)
[2020-12-12] MEDS: busPIRone HCl 10 MG TAB PO SCH ×2 (08:43→20:45)
[2020-12-12] MEDS: ATORVASTATIN 20 MG TAB PO SCH (08:43)
[2020-12-12] MEDS: FAMOTIDINE 20 MG TAB PO SCH ×2 (08:44→20:45)
[2020-12-12] MEDS: lamoTRIgine 25 MG TAB PO SCH ×2 (08:44→20:45)
[2020-12-12] MEDS: DEXAMETHASONE SOD PHOSPHATE 10 MG/ML 1 ML VIAL IV SCH (08:44)
[2020-12-12] MEDS: ASCORBIC ACID 500 MG TAB PO SCH (08:44)
[2020-12-12] MEDS: CHOLECALCIFEROL 25 MCG (1000 IU) TABLET PO SCH (08:44)
[2020-12-12] MEDS: CYANOCOBALAMIN 500 MCG TAB PO SCH (08:44)
[2020-12-12] MEDS: LINAGLIPTIN 5 MG TABLET PO SCH (08:44)
[2020-12-12] MEDS: ASPIRIN 81 MG PO SCH (08:44)
[2020-12-12] MEDS: CITALOPRAM HYDROBROMIDE 20 MG TAB PO SCH (08:44)
[2020-12-12] MEDS: PROPRANOLOL 10 MG TAB PO SCH ×2 (08:44→20:45)
[2020-12-12] MEDS: MULTIVITAMINS, THERA 1 EACH TAB PO SCH (08:47)
[2020-12-12] MEDS: ZINC SULFATE 220 MG CAP PO SCH (08:47)
--- NOTE | 2020-12-12 10:46 | P.PN ---
Subjective Progress Note Date: 12/12/20 This is a 75-year-old female with past medical history significant for hypertension, hyperlipidemia, diabetes, osteoarthritis, hypothyroidism, anxiety, overall is a poor historian, she was brought to the emergency department yesterday morning for evaluation of altered mental status. The patient did develop upper respiratory symptoms and was tested for coated 19 which was reportedly negative. She was given antibiotics for the infection however she was increasingly more disoriented and unresponsive, upon presentation to the emergency room she tested positive for cold and 19 in the ER. Her temperature on arrival here was 101.7, subsequent temperature 104.6 blood pressure 140/90 with a heart rate in the 80s, she was 91% on 2 L of oxygen on presentation here. White blood cell count 9.5, hemoglobin 14.1, platelet count 160. D-dimer 0.4, repeat d-dimer 1.08. Sodium 132, potassium 4.1, BUN 23, creatinine 0.8. Troponins 0.065, 0.062. At the time of my examination, patient seems to be breathing comfortably, she is confused, denies any chest discomfort. Chest x- ray on presentation here showed mild diffuse airspace [place] within both lungs. Her EKG showed normal sinus rhythm with no acute changes. Echocardiogram with Doppler study was performed which revealed an ejection fraction of 55-60%. CAT scan of the brain was also performed which revealed moderate bifrontal atrophy and moderate patchy burden of chronic small vessel ischemic disease with no acute abnormality seen. Objective - Vital Signs Vital signs: Vital Signs Temp 98.3 F 12/12/20 08:00 Pulse 68 12/12/20 08:00 Resp 20 12/12/20 08:00 BP 148/76 12/12/20 08:00 Pulse Ox 93 L 12/12/20 08:00 Intake & Output 12/11/20 12/12/20 12/12/20 18:59 06:59 18:59 Intake Total 475 0 Balance 475 0 Weight 79.3 kg Intake: Oral 475 0 Other: Voiding Method Bedpan Bedpan # Voids 2 # Bowel Movements 2 - Exam GENERAL EXAM: Alert, but confused, 75-year-old white female currently on 3 L of oxygen with a pulse ox of 93%, resting comfortably in bed , she is disoriented to place and the time, she cannot recall why she is in the hospital, but breathing comfortably, no cough comfortable in no apparent distress. HEAD: Normocephalic/atraumatic. EYES: Normal reaction of pupils, equal size. Conjunctiva pink, sclera white. NOSE: Clear with pink turbinates. THROAT: No erythema or exudates. NECK: No masses, no JVD, no thyroid enlargement, no adenopathy. CHEST: No chest wall deformity. Symmetrical expansion. LUNGS: Equal air entry with no crackles, wheeze, rhonchi or dullness. CVS: Regular rate and rhythm, normal S1 and S2, no gallops, no murmurs, no rubs ABDOMEN: Soft, nontender. No hepatosplenomegaly, normal bowel sounds, no guarding or rigidity. EXTREMITIES: No clubbing, no edema, no cyanosis, 2+ pulses and upper and lower extremities. MUSCULOSKELETAL: Muscle strength and tone normal. SPINE: No scoliosis or deformity SKIN: No rashes CENTRAL NERVOUS SYSTEM: Alert and oriented -1. No focal deficits, tone is normal in all 4 extremities. - Labs CBC & Chem 7: 12/11/20 04:41 12/11/20 04:41 Labs: Abnormal Lab Results - Last 24 Hours (Table) 12/11/20 12/12/20 12/12/20 Range/Units 21:28 06:14 08:48 D-Dimer 1.08 H (<0.60) mg/L FEU POC Glucose (mg/dL) 184 H 134 H (75-99) mg/dL C-Reactive Protein (<10.0) mg/L 12/12/20 Range/Units 08:48 D-Dimer (<0.60) mg/L FEU POC Glucose (mg/dL) (75-99) mg/dL C-Reactive Protein 74.6 H (<10.0) mg/L Microbiology - Last 24 Hours (Table) 12/11/20 04:45 Blood Culture - Preliminary Blood No Growth after 24 hours 12/11/20 04:30 Blood Culture - Preliminary Blood No Growth after 24 hours Assessment and Plan Plan: Assessment and plan #1 altered mental status, CT of the brain did not reveal any acute finding #2 acute: 19 pneumonia with hypoxic respiratory failure #3 abnormality in troponin, likely secondary to Covid infection, no significant rise and fall pattern, echo revealed normal left ventricular systolic function. #4 hypertension #5 hyperlipidemia #6 diabetes #7 hypothyroidism #8 dementia #9 anxiety Plan From cardiology's perspective, the abnormality in troponin is likely secondary to the patient's Covid 19 infection. We'll continue the patient on her current medications. We will follow her along with you on an as-needed basis only, please don't hesitate to call if you have any questions. DNP note has been reviewed, I agree with a documented findings and plan of care. Patient was seen and examined.
[2020-12-12 11:47] LABS: Glucose,Whole Blood 128 mg/dL (75-99)
[2020-12-12] MEDS ORDERED: risperiDONE 0.25 MG TAB PO STA (13:24)
--- NOTE | 2020-12-12 15:58 | P.PN ---
Subjective Progress Note Date: 12/12/20 Principal diagnosis: Mental status changes. 75-year-old white female patient who is a poor historian, with past medical history of hypertension, hyperlipidemia, diabetes mellitus, osteoarthritis, hypothyroidism, anxiety, who was brought into the emergency department on 12/11/2020 at 4:00 in the morning per EMS for evaluation of altered mental status. Apparently patient had developed upper respiratory symptoms and was tested for COVID 19 which was reportedly negative. She was given antibiotics for the infection, however she was increasingly more disoriented and last night she was less responsive and she was brought in to be evaluated. Patient tested positive for COVID 19 in the ER. CBC showed white blood cell count of 9.5, hemoglobin is 14.1, d-dimer is 0.48, sodium is 132, the rest of electrolytes were unremarkable, BUN is 23, creatinine is 0.89 plasma lactic acid 0.9. LFTs were within normal limits, there was a troponin leak of 0.065, and 0.062, patient denies any shortness of breath, she seems to be breathing comfortably, she is a poor historian, she is confused, she does not know the place or the mouth or the year or the president, no cough, lung sounds reveal some mild crackles, no wheezing, no cough no hemoptysis, urinalysis is without sign of inf ection. Patient is currently on 3 L of oxygen pulse ox is 93%. Patient was febrile on presentation with a T-max of 104.6F. Chest x-ray showed mild diffuse airspace opacities in both lungs. While she is resting fairly comfortably on the gurney in the emergency department awaiting a bed to go to medical surgical floor. Progress note dated 12/12/2020. This is a 75-year-old female who was seen by our team yesterday for evaluation. She is a very poor historian, and is very confused. She has a history of hypertension diabetes, hyperlipidemia, osteoarthritis, hypothyroidism, and anxiety. She was brought into the emergency department by EMS for altered mental status. Apparently, the patient developed upper respiratory tract symptoms, and was tested for coronavirus, and apparently initially tested negative. In the ER, on this admission, the patient did test positive. She is very confused. She has a sitter in the room. She is on 3 L nasal cannula. She is not manifesting any signs or symptoms of respiratory distress. Labs today include a d-dimer which is 1.08, a glucose which is 128, and a C-reactive protein which is 75. Computed tomography scan of the brain showed moderate bifrontal atrophy and moderate patchy small vessel ischemic changes. Chest x- ray shows patchy bilateral infiltrates. Objective - Vital Signs Vital signs: Vital Signs Temp 97.5 F L 12/12/20 12:00 Pulse 66 12/12/20 12:00 Resp 20 12/12/20 12:00 BP 126/58 12/12/20 12:00 Pulse Ox 92 L 12/12/20 12:00 Intake & Output 12/11/20 12/12/20 12/12/20 18:59 06:59 18:59 Intake Total 475 180 Output Total 300 Balance 475 -120 Weight 79.3 kg Intake: Oral 475 180 Output: Urine 300 Other: Voiding Method Bedpan Bedpan # Voids 2 # Bowel Movements 2 1 - Exam Very confused, speaking gibberish. Patient is on 3 L nasal cannula. Saturations are in the low to mid 90s. HEENT examination is grossly unremarkable. Neck supple. Full range of motion. No adenopathy thyromegaly or neck vein distention. Cardiovascular examination reveals regular rhythm rate. S1-S2 normal. No S3 or S4. No discernible murmur noted. Heart rate is 66 bpm. Lungs reveal mostly clear breath sounds. A few scattered rhonchi are noted. No wheezes. No crackles. Breath sounds equal bilaterally.. Abdomen soft bowel sounds are heard. No masses or tenderness. Extremities are intact. No cyanosis clubbing or edema. Skin is without rash or lesion. Neurologic examination is brief but nonfocal. - Labs CBC & Chem 7: 12/11/20 04:41 12/11/20 04:41 Labs: Abnormal Lab Results - Last 24 Hours (Table) 12/11/20 12/12/20 12/12/20 Range/Units 21:28 06:14 08:48 D-Dimer 1.08 H (<0.60) mg/L FEU POC Glucose (mg/dL) 184 H 134 H (75-99) mg/dL C-Reactive Protein (<10.0) mg/L 12/12/20 12/12/20 Range/Units 08:48 11:42 D-Dimer (<0.60) mg/L FEU POC Glucose (mg/dL) 128 H (75-99) mg/dL C-Reactive Protein 74.6 H (<10.0) mg/L Microbiology - Last 24 Hours (Table) 12/11/20 04:45 Blood Culture - Preliminary Blood No Growth after 24 hours 12/11/20 04:30 Blood Culture - Preliminary Blood No Growth after 24 hours Assessment and Plan Assessment: #1. Altered mental status, of unclear etiology, we will obtain brain CT without contrast #2. Acute COVID 19 pneumonia with hypoxic respiratory failure, the onset of symptoms is unclear. Patient is a poor historian, she had a positive COVID 19 test last Monday 6 days ago after having symptoms of upper respiratory infection. The timeline of symptom onset is unclear #3. Mild troponin leak, echocardiogram is pending #4. Mild hyponatremia, possibly hypovolemic #5. Hypertension #6. Hyperlipidemia #7. Diabetes mellitus type 2 #9. Hypothyroidism #10. Osteoarthritis #11. Anxiety Plan: Plan dated 12/12/2020. The patient is very confused and disoriented. She really wasn't making much sense and could not really provide any additional history. She was telling me that she feels just fine. She was on 3 L. The patient was maintained on Lovenox, and Decadron.. We'll make sure that we give her typical vitamins incl uding vitamin C, vitamin D3, and zinc. Additional recommendations suggestions are forthcoming. Prognosis is guarded. Time with Patient: Less than 30
[2020-12-12 16:45] LABS: Glucose,Whole Blood 159 mg/dL (75-99)
[2020-12-12 20:32] LABS: Glucose,Whole Blood 140 mg/dL (75-99)
[2020-12-12] MEDS: risperiDONE 0.5 MG TAB PO SCH (20:45)
[2020-12-12] MEDS ORDERED: HALOPERIDOL LACTATE 5 MG/ML 1 ML VIAL IM ONE (21:19)
--- NOTE | 2020-12-12 22:23 | P.PN ---
Progress Note - Text Progress Note Date: 12/12/20 Chief Complaint: Increase in confusion History of presenting complaint: This is a 75-year-old patient who follows with Dr. Kory Pearce. Chronic stable medical conditions include diabetes, hypertension, hyperlipidemia, prostatitis, hypothyroid. Patient has a baseline dementia. With cognitive impairment. 5 days ago on Monday patient is having upper respiratory tract infection symptoms. Apparently patient tested negative for COVID. Was given antibiotics to go home with. Last night patient became increasingly confused and less responsive. Brought into the ER. Patient is found to be a bit delirious with a fever up to 104.6. And pulse ox this morning was 92% on 3 L. Patient not able to give much of a history. Because underlying dementia. She is only able to answer simple questions. She does not know why she is or why she is here. When I walked in the room she was talking to her on the phone, making simple conversation Admitted with bilateral COVID 19 pneumonia, acute hypoxic respiratory failure, sepsis, acute delirium. Started on IV dexamethasone, subcu Lovenox. Today: Patient somewhat agitated. Does not want to stay in the hospital. Has a sitter. Not eating much. 3 L nasal cannula Review of systems: Attempted for constitutional, cardiovascular, GI, pulmonary. relevant finding as above Active Medications Acetaminophen (Acetaminophen Tab 325 Mg Tab) 650 mg PO Q6HR PRN PRN Reason: Mild Pain or Fever > 100.5 Amlodipine Besylate (Amlodipine 5 Mg Tab) 5 mg PO DAILY [facility] Last Admin: 12/12/20 08:43 Dose: 5 mg Documented by: Ascorbic Acid (Ascorbic Acid 500 Mg Tab) 1,000 mg PO DAILY [facility] Last Admin: 12/12/20 08:44 Dose: 1,000 mg Documented by: Aspirin (Aspirin 81 Mg) 81 mg PO DAILY [facility] Last Admin: 12/12/20 08:44 Dose: 81 mg Documented by: Atorvastatin Calcium (Atorvastatin 20 Mg Tab) 20 mg PO DAILY [facility] Last Admin: 12/12/20 08:43 Dose: 20 mg Documented by: Buspirone HCl (Buspirone Hcl 10 Mg Tab) 10 mg PO BID [facility] Last Admin: 12/12/20 20:45 Dose: 10 mg Documented by: Cholecalciferol (Cholecalciferol 25 Mcg (1000 Iu) Tablet) 25 mcg PO DAILY [facility] Last Admin: 12/12/20 08:44 Dose: 25 mcg Documented by: Citalopram Hydrobromide (Citalopram Hydrobromide 20 Mg Tab) 40 mg PO DAILY [facility] Last Admin: 12/12/20 08:44 Dose: 40 mg Documented by: Cyanocobalamin (Cyanocobalamin 500 Mcg Tab) 5,000 mcg PO DAILY [facility] Last Admin: 12/12/20 08:44 Dose: 5,000 mcg Documented by: Dexamethasone Sodium Phosphate (Dexamethasone Sod Phosphate 10 Mg/Ml 1 Ml Vial) 6 mg IV DAILY [facility] Last Admin: 12/12/20 08:44 Dose: 6 mg Documented by: Enoxaparin Sodium (Enoxaparin 40 Mg/0.4 Ml Syringe) 40 mg SQ DAILY [facility] Last Admin: 12/12/20 08:43 Dose: 40 mg Documented by: Famotidine (Famotidine 20 Mg Tab) 20 mg PO BID [facility] Last Admin: 12/12/20 20:45 Dose: 20 mg Documented by: Sodium Chloride (Saline 0.9%) 1,000 mls @ 130 mls/hr IV .Q7H42M [facility] Last Admin: 12/12/20 17:09 Dose: 130 mls/hr Documented by: Lamotrigine (Lamotrigine 25 Mg Tab) 25 mg PO BID [facility] Last Admin: 12/12/20 20:45 Dose: 25 mg Documented by: Levothyroxine Sodium (Levothyroxine 88 Mcg Tab) 88 mcg PO DAILY@0630 [facility] Last Admin: 12/12/20 06:33 Dose: 88 mcg Documented by: Linagliptin (Linagliptin 5 Mg Tablet) 5 mg PO DAILY [facility] Last Admin: 12/12/20 08:44 Dose: 5 mg Documented by: Multivitamins (Multivitamins, Thera 1 Each Tab) 1 each PO DAILY [facility] Last Admin: 12/12/20 08:47 Dose: 1 each Documented by: Naloxone HCl (Naloxone 0.4 Mg/Ml 1 Ml Vial) 0.2 mg IV Q2M PRN PRN Reason: Opioid Reversal Propranolol HCl (Propranolol 10 Mg Tab) 10 mg PO BID [facility] Last Admin: 12/12/20 20:45 Dose: 10 mg Documented by: Risperidone (Risperidone 0.5 Mg Tab) 0.5 mg PO BID [facility] Last Admin: 12/12/20 20:45 Dose: 0.5 mg Documented by: Zinc Sulfate (Zinc Sulfate 220 Mg Cap) 220 mg PO DAILY [facility] Last Admin: 12/12/20 08:47 Dose: 220 mg Documented by: Past medical history to include: Diabetes, hypertension, hyperlipidemia, osteoarthritis, hypothyroid, tremor in the left arm, anxiety Social history: Lives with her . Smoking for over 40 years about quarter pack a day. Alcohol rarely. Family history: Patient cannot tell Physical examination: VITAL SIGNS: 97.5, 66, 20, 126/58, 92% on 3 L GENERAL: Sitting up in bed, somewhat agitated LUNGS: Respiratory rate increased, . PSYCH: Disoriented. NEUROLOGICAL: Cranial nerves grossly intact; no facial asymmetry, moving all 4 limbs Rest of the exam as per pulmonary INVESTIGATIONS, reviewed in the clinical context: December 12: D-dimer 1.08 CRP 74.6 WBC 9.5 hemoglobin 14.1 platelets 160 potassium 4.1 creatinine 0.89 Troponin I 0.065, 0.062, UA-negative Coronavirus [PCR]-detected EKG tracing personally reviewed by me-normal sinus rhythm, poor quality baseline Chest x-ray film personally reviewed by me-bilateral infiltrates Assessment and plan: -Acute bilateral COVID 19 pneumonia with symptoms starting about 6 days ago. IV Decadron subcu Lovenox vitamin C vitamin D Zinc Pepcid. -Sepsis from COVID 19 pneumonia IV fluids -Acute hypoxic respiratory failure from pneumonia-worsening 3 L of supplemental oxygen -Acute delirium from sepsis Follow closely -Major cognitive impairment from underlying Alzheimer's dementia late onset type Continue with Loreta Travis -COPD in a current smoker Continue with home inhalers bronchodilators -Chronic nicotine dependence patient cigarette smoker At nicotine patch -Diabetes mellitus type 2 on oral hypoglycemic Expect Accu-Cheks to climb because of dexamethasone. Follow Accu-Cheks and coverage -Hypothyroid Continue with Synthroid -Essential hypertension Continue with amlodipine and propofol Patient has a sitter. Continue current medications.
[2020-12-13 06:26] LABS: Glucose,Whole Blood 105 mg/dL (75-99)
[2020-12-13] MEDS: LEVOTHYROXINE 88 MCG TAB PO SCH (06:29)
[2020-12-13] MEDS: ZINC SULFATE 220 MG CAP PO SCH (09:14)
[2020-12-13] MEDS: CITALOPRAM HYDROBROMIDE 20 MG TAB PO SCH (09:14)
[2020-12-13] MEDS: ASPIRIN 81 MG PO SCH (09:14)
[2020-12-13] MEDS: ASCORBIC ACID 500 MG TAB PO SCH (09:14)
[2020-12-13] MEDS: risperiDONE 0.5 MG TAB PO SCH ×2 (09:14→20:56)
[2020-12-13] MEDS: FAMOTIDINE 20 MG TAB PO SCH ×2 (09:14→20:56)
[2020-12-13] MEDS: ATORVASTATIN 20 MG TAB PO SCH (09:14)
[2020-12-13] MEDS: amLODIPine 5 MG TAB PO SCH (09:14)
[2020-12-13] MEDS: MULTIVITAMINS, THERA 1 EACH TAB PO SCH (09:14)
[2020-12-13] MEDS: LINAGLIPTIN 5 MG TABLET PO SCH (09:14)
[2020-12-13] MEDS: PROPRANOLOL 10 MG TAB PO SCH ×2 (09:14→20:56)
[2020-12-13] MEDS: busPIRone HCl 10 MG TAB PO SCH ×2 (09:14→20:56)
[2020-12-13] MEDS: CYANOCOBALAMIN 500 MCG TAB PO SCH (09:15)
[2020-12-13] MEDS: ENOXAPARIN 40 MG/0.4 ML SYRINGE SQ SCH (09:15)
[2020-12-13] MEDS: lamoTRIgine 25 MG TAB PO SCH ×2 (09:15→20:56)
[2020-12-13] MEDS: DEXAMETHASONE SOD PHOSPHATE 10 MG/ML 1 ML VIAL IV SCH (09:15)
[2020-12-13] MEDS: SODIUM CHLORIDE 0.9% 1,000 ML IV SCH ×3 (09:16→22:10)
[2020-12-13] MEDS: CHOLECALCIFEROL 25 MCG (1000 IU) TABLET PO SCH (09:19)
[2020-12-13 11:44] LABS: Glucose,Whole Blood 125 mg/dL (75-99)
[2020-12-13 16:44] LABS: Glucose,Whole Blood 155 mg/dL (75-99)
--- NOTE | 2020-12-13 17:07 | P.PN ---
Subjective Progress Note Date: 12/13/20 75-year-old white female patient who is a poor historian, with past medical history of hypertension, hyperlipidemia, diabetes mellitus, osteoarthritis, hypothyroidism, anxiety, who was brought into the emergency department on 12/11/2020 at 4:00 in the morning per EMS for evaluation of altered mental stat us. Apparently patient had developed upper respiratory symptoms and was tested for COVID 19 which was reportedly negative. She was given antibiotics for the infection, however she was increasingly more disoriented and last night she was less responsive and she was brought in to be evaluated. Patient tested positive for COVID 19 in the ER. CBC showed white blood cell count of 9.5, hemoglobin is 14.1, d-dimer is 0.48, sodium is 132, the rest of electrolytes were unremarkable, BUN is 23, creatinine is 0.89 plasma lactic acid 0.9. LFTs were within normal limits, there was a troponin leak of 0.065, and 0.062, patient denies any shortness of breath, she seems to be breathing comfortably, she is a poor historian, she is confused, she does not know the place or the mouth or the year or the president, no cough, lung sounds reveal some mild crackles, no wheezing, no cough no hemoptysis, urinalysis is without sign of infection. Patient is currently on 3 L of oxygen pulse ox is 93%. Patient was febrile on presentation with a T-max of 104.6F. Chest x-ray showed mild diffuse airspace opacities in both lungs. While she is resting fairly comfortably on the gurney in the emergency department awaiting a bed to go to medical surgical floor. Progress note dated 12/12/2020. This is a 75-year-old female who was seen by our team yesterday for evaluation. She is a very poor historian, and is very confused. She has a history of hypertension diabetes, hyperlipidemia, osteoarthritis, hypothyroidism, and anxiety. She was brought into the emergency department by EMS for altered mental status. Apparently, the patient developed upper respiratory tract symptoms, and was tested for coronavirus, and apparently initially tested negative. In the ER, on this admission, the patient did test positive. She is very confused. She has a sitter in the room. She is on 3 L nasal cannula. She is not manifesting any signs or symptoms of respiratory distress. Labs today include a d-dimer which is 1.08, a glucose which is 128, and a C-reactive protein which is 75. Computed tomography scan of the brain showed moderate bifrontal atrophy and moderate patchy small vessel ischemic changes. Chest x- ray shows patchy bilateral infiltrates. The patient is seen today 12/13/2020 in follow-up on the selective care unit. She is currently resting in bed. Quite restless. She does have significant dementia she is confused and disoriented. Her is at the bedside now. She is requiring 15 L high flow nasal cannula plus a nonrebreather mask to maintain O2 saturations in the low 80s. D-dimer 1.50. C-reactive protein 68.1. Blood glucose 125. She is continued on vitamin supplements, Decadron, Lovenox. Objective - Vital Signs Vital signs: Vital Signs Temp 98.3 F 12/13/20 16:18 Pulse 60 12/13/20 16:18 Resp 24 12/13/20 16:18 BP 136/99 12/13/20 16:18 Pulse Ox 95 12/13/20 16:18 Intake & Output 12/12/20 12/13/20 12/13/20 18:59 06:59 18:59 Intake Total 1220 0 Output Total 300 Balance 920 0 Weight 79.3 kg 80.5 kg Intake: Intake, IV Titration 1040 Amount Sodium Chloride 0.9% 1, 1040 000 ml @ 130 mls/hr IV . Q7H42M [facility] Rx#:[id number] Oral 180 0 Output: Urine 300 Other: Voiding Method Bedpan Bedside Commode Bedside Commode # Voids 1 2 # Bowel Movements 1 - Exam GENERAL EXAM: Alert, confused, disoriented 75-year-old female patient, on 15 L high flow plus a nonrebreather mask, in mild respiratory distress. HEAD: Normocephalic. EYES: Normal reaction of pupils, equal size. NOSE: Clear with pink turbinates. THROAT: No erythema or exudates. NECK: No masses, no JVD. CHEST: No chest wall deformity. LUNGS: Equal air entry with crackles in the bilateral posterior bases. CVS: S1 and S2 normal with no audible murmur, regular rhythm. ABDOMEN: No hepatosplenomegaly, normal bowel sounds, no guarding or rigidity. SPINE: No scoliosis or deformity SKIN: No rashes CENTRAL NERVOUS SYSTEM: No focal deficits, tone is normal in all 4 extremities. EXTREMITIES: There is no peripheral edema. No clubbing, no cyanosis. Peripheral pulses are intact. - Labs CBC & Chem 7: 12/11/20 04:41 12/11/20 04:41 Labs: Abnormal Lab Results - Last 24 Hours (Table) 12/11/20 12/12/20 12/13/20 Range/Units 04:41 20:31 06:24 D-Dimer (<0.60) mg/L FEU POC Glucose (mg/dL) 140 H 105 H (75-99) mg/dL C-Reactive Protein (<10.0) mg/L Procalcitonin 0.10 H (0.02-0.09) ng/mL 12/13/20 12/13/20 12/13/20 Range/Units 07:17 07:17 11:42 D-Dimer 1.50 H (<0.60) mg/L FEU POC Glucose (mg/dL) 125 H (75-99) mg/dL C-Reactive Protein 68.1 H (<10.0) mg/L Procalcitonin (0.02-0.09) ng/mL 12/13/20 Range/Units 16:42 D-Dimer (<0.60) mg/L FEU POC Glucose (mg/dL) 155 H (75-99) mg/dL C-Reactive Protein (<10.0) mg/L Procalcitonin (0.02-0.09) ng/mL Microbiology - Last 24 Hours (Table) 12/11/20 04:45 Blood Culture - Preliminary Blood No Growth after 48 hours 12/11/20 04:30 Blood Culture - Preliminary Blood No Growth after 48 hours Assessment and Plan Assessment: 1 Altered mental status, of unclear etiology, we will obtain brain CT without contrast 2 Acute COVID 19 pneumonia with hypoxic respiratory failure, the onset of symptoms is unclear. Patient is a poor historian, she had a positive COVID 19 test last Monday 6 days ago after having symptoms of upper respiratory infection. The timeline of symptom onset is unclear 3 Mild troponin leak, echocardiogram is pending 4 Mild hyponatremia, possibly hypovolemic 5 Hypertension 6 Hyperlipidemia 7 Diabetes mellitus type 2 8 Hypothyroidism 10 Osteoarthritis 11 Anxiety Plan: The patient was seen and evaluated by Dr. Basha He is now requiring 15 L high flow plus a nonrebreather mask to maintain O2 saturation in the low 80s Her condition is guarded and poor Discussed the current status with her who is at the bedside He wishes for her to be a DO NOT RESUSCITATE/DO NOT INTUBATE CODE STATUS We will continue Lovenox, dexamethasone, vitamin supplements We will continue to follow and make further recommendations based on her clinical status I, the cosigning physician, performed a history & physical examination of the patient. Lungs sounds with bibasilar crackles in the posterior bases. Maintaining good O2 saturations in the 80s on 15 L high flow nasal cannula plus a nonrebreather mask. I discussed the assessment and plan of care with my nurse practitioner, Davina Huynh. I attest to the above note as dictated by her.
--- NOTE | 2020-12-13 18:15 | P.PN ---
Progress Note - Text Progress Note Date: 12/13/20 Chief Complaint: Increase in confusion History of presenting complaint: This is a 75-year-old patient who follows with Dr. Kory Pearce. Chronic stable medical conditions include diabetes, hypertension, hyperlipidemia, prostatitis, hypothyroid. Patient has a baseline dementia. With cognitive impairment. 5 days ago on Monday patient is having upper respiratory tract infection symptoms. Apparently patient tested negative for COVID. Was given antibiotics to go home with. Last night patient became increasingly confused and less responsive. Brought into the ER. Patient is found to be a bit delirious with a fever up to 104.6. And pulse ox this morning was 92% on 3 L. Patient not able to give much of a history. Because underlying dementia. She is only able to answer simple questions. She does not know why she is or why she is here. When I walked in the room she was talking to her on the phone, making simple conversation Admitted with bilateral COVID 19 pneumonia, acute hypoxic respiratory failure, sepsis, acute delirium. Started on IV dexamethasone, subcu Lovenox. Today: Patient is been on high flow oxygen nasal cannula. On 15 L. Oral intake rather limited. Remains a bit delirious. Review of systems: Attempted for constitutional, cardiovascular, GI, pulmonary. relevant finding as above Active Medications Acetaminophen (Acetaminophen Tab 325 Mg Tab) 650 mg PO Q6HR PRN PRN Reason: Mild Pain or Fever > 100.5 Amlodipine Besylate (Amlodipine 5 Mg Tab) 5 mg PO DAILY [facility] Last Admin: 12/13/20 09:14 Dose: 5 mg Documented by: Ascorbic Acid (Ascorbic Acid 500 Mg Tab) 1,000 mg PO DAILY [facility] Last Admin: 12/13/20 09:14 Dose: 1,000 mg Documented by: Aspirin (Aspirin 81 Mg) 81 mg PO DAILY [facility] Last Admin: 12/13/20 09:14 Dose: 81 mg Documented by: Atorvastatin Calcium (Atorvastatin 20 Mg Tab) 20 mg PO DAILY [facility] Last Admin: 12/13/20 09:14 Dose: 20 mg Documented by: Buspirone HCl (Buspirone Hcl 10 Mg Tab) 10 mg PO BID [facility] Last Admin: 12/13/20 09:14 Dose: 10 mg Documented by: Cholecalciferol (Cholecalciferol 25 Mcg (1000 Iu) Tablet) 25 mcg PO DAILY [facility] Last Admin: 12/13/20 09:19 Dose: 25 mcg Documented by: Citalopram Hydrobromide (Citalopram Hydrobromide 20 Mg Tab) 40 mg PO DAILY [facility] Last Admin: 12/13/20 09:14 Dose: 40 mg Documented by: Cyanocobalamin (Cyanocobalamin 500 Mcg Tab) 5,000 mcg PO DAILY [facility] Last Admin: 12/13/20 09:15 Dose: 500 mcg Documented by: Dexamethasone Sodium Phosphate (Dexamethasone Sod Phosphate 10 Mg/Ml 1 Ml Vial) 6 mg IV DAILY [facility] Last Admin: 12/13/20 09:15 Dose: 6 mg Documented by: Enoxaparin Sodium (Enoxaparin 40 Mg/0.4 Ml Syringe) 40 mg SQ DAILY [facility] Last Admin: 12/13/20 09:15 Dose: 40 mg Documented by: Famotidine (Famotidine 20 Mg Tab) 20 mg PO BID [facility] Last Admin: 12/13/20 09:14 Dose: 20 mg Documented by: Haloperidol Lactate (Haloperidol Lactate 5 Mg/Ml 1 Ml Vial) 2 mg IVP Q4HR PRN PRN Reason: Agitation or Acute Psychosis Sodium Chloride (Saline 0.9%) 1,000 mls @ 130 mls/hr IV .Q7H42M [facility] Last Admin: 12/13/20 16:54 Dose: Not Given Documented by: Lamotrigine (Lamotrigine 25 Mg Tab) 25 mg PO BID [facility] Last Admin: 12/13/20 09:15 Dose: 25 mg Documented by: Levothyroxine Sodium (Levothyroxine 88 Mcg Tab) 88 mcg PO DAILY@0630 [facility] Last Admin: 12/13/20 06:29 Dose: Not Given Documented by: Linagliptin (Linagliptin 5 Mg Tablet) 5 mg PO DAILY [facility] Last Admin: 12/13/20 09:14 Dose: 5 mg Documented by: Multivitamins (Multivitamins, Thera 1 Each Tab) 1 each PO DAILY [facility] Last Admin: 12/13/20 09:14 Dose: 1 each Documented by: Naloxone HCl (Naloxone 0.4 Mg/Ml 1 Ml Vial) 0.2 mg IV Q2M PRN PRN Reason: Opioid Reversal Propranolol HCl (Propranolol 10 Mg Tab) 10 mg PO BID [facility] Last Admin: 12/13/20 09:14 Dose: 10 mg Documented by: Risperidone (Risperidone 0.5 Mg Tab) 0.5 mg PO BID [facility] Last Admin: 12/13/20 09:14 Dose: 0.5 mg Documented by: Zinc Sulfate (Zinc Sulfate 220 Mg Cap) 220 mg PO DAILY [facility] Last Admin: 12/13/20 09:14 Dose: 220 mg Documented by: Past medical history to include: Diabetes, hypertension, hyperlipidemia, osteoarthritis, hypothyroid, tremor in the left arm, anxiety Social history: Lives with her . Smoking for over 40 years about quarter pack a day. Alcohol rarely. Family history: Patient cannot tell Physical examination: VITAL SIGNS: 97.4, 92, 24, 129/65, 83% on 15 L high flow GENERAL: Sitting up in bed, somewhat agitated LUNGS: Respiratory rate increased, . PSYCH: Disoriented. NEUROLOGICAL: Cranial nerves grossly intact; no facial asymmetry, moving all 4 limbs Rest of the exam as per pulmonary INVESTIGATIONS, reviewed in the clinical context: December 13: D-dimer 1.5 CRP 68 December 12: D-dimer 1.08 CRP 74.6 WBC 9.5 hemoglobin 14.1 platelets 160 potassium 4.1 creatinine 0.89 Troponin I 0.065, 0.062, UA-negative Coronavirus [PCR]-detected EKG tracing personally reviewed by me-normal sinus rhythm, poor quality baseline Chest x-ray film personally reviewed by me-bilateral infiltrates Assessment and plan: -Acute bilateral COVID 19 pneumonia with symptoms starting about 6 days prior to admission-slow to respond IV Decadron subcu Lovenox vitamin C vitamin D Zinc Pepcid. -Sepsis from COVID 19 pneumonia IV fluids -Acute hypoxic respiratory failure from pneumonia-worsening 15 L of supplemental oxygen -Acute delirium from sepsis Follow closely -Major cognitive impairment from underlying Alzheimer's dementia late onset type, with agitation Continue with Loreta Travis -COPD in a current smoker Continue with home inhalers bronchodilators -Chronic nicotine dependence patient cigarette smoker At nicotine patch -Diabetes mellitus type 2 on oral hypoglycemic Expect Accu-Cheks to climb because of dexamethasone. Follow Accu-Cheks and coverage -Hypothyroid Continue with Synthroid -Essential hypertension Continue with amlodipine and propranolol -No code Prognosis remains guarded. Continue current medication treatment plan. Follow with pulmonary
[2020-12-13 20:51] LABS: Glucose,Whole Blood 176 mg/dL (75-99)
[2020-12-14 03:13] LABS: Glucose,Whole Blood 148 mg/dL (75-99)
[2020-12-14] MEDS: HALOPERIDOL LACTATE 5 MG/ML 1 ML VIAL IVP PRN (03:19)
--- NOTE | 2020-12-14 03:43 | P.EN ---
A team call ed on this patient for worsening hypoxemia on non rebreather, with oxygen sat 70-80% patient is increasingly confused, trying to remove mask . she does not follow commands and has her eyes closed. heart rate in 90s, oxygen sat low 80s to mid 70s %, BP 160s. systolic lungs with scattered end expiratory wheezes, no crackles no leg edema patient switched to bipap 08/09 and given a dose of haldol 2mg IV she seems to better tolerate the bipap now , she is answering few questions now. oxygen sat is maintained in low 90s%. she seem s to be less restless and irritable at this time CXR reviewed showed diffuse bilateral patchy infilterates, costophrenic angles clear bilaterally , await official read continue supportive care on Bipap at this time if increase wheezing , will consider inhalers. patient is no code 35 minutes were spent in critical care time in the care of this patient
--- NOTE | 2020-12-14 03:54 | XR ---
EXAM: XR Chest, 1 View CLINICAL HISTORY: ITS.REASON XR Reason: SOB TECHNIQUE: Frontal view of the chest. COMPARISON: December 11, 2020 FINDINGS: Lungs: Moderate to severe diffuse bilateral interstitial infiltrates throughout both lungs, significantly increased compared to previous. Pleural space: Unremarkable. No pneumothorax. Heart: The cardiac silhouette is mildly enlarged. Mediastinum: Unremarkable. Bones/joints: Previous multilevel cervical spine fusion. Mild degenerative changes in the lower thoracic spine. Upper abdomen: No pneumoperitoneum is seen under the diaphragm. IMPRESSION: Moderate to severe diffuse bilateral interstitial infiltrates throughout both lungs, significantly increased compared to previous.
[2020-12-14] MEDS: SODIUM CHLORIDE 0.9% 1,000 ML IV SCH ×3 (06:02→21:23)
[2020-12-14] MEDS: LEVOTHYROXINE 88 MCG TAB PO SCH (06:09)
[2020-12-14 06:29] LABS: Glucose,Whole Blood 120 mg/dL (75-99)
[2020-12-14] MEDS: ZINC SULFATE 220 MG CAP PO SCH (09:33)
[2020-12-14] MEDS: ASPIRIN 81 MG PO SCH (09:33)
[2020-12-14] MEDS: lamoTRIgine 25 MG TAB PO SCH ×2 (09:33→21:13)
[2020-12-14] MEDS: ASCORBIC ACID 500 MG TAB PO SCH (09:33)
[2020-12-14] MEDS: PROPRANOLOL 10 MG TAB PO SCH ×2 (09:33→21:13)
[2020-12-14] MEDS: amLODIPine 5 MG TAB PO SCH (09:33)
[2020-12-14] MEDS: ATORVASTATIN 20 MG TAB PO SCH (09:33)
[2020-12-14] MEDS: CITALOPRAM HYDROBROMIDE 20 MG TAB PO SCH (09:34)
[2020-12-14] MEDS: ENOXAPARIN 40 MG/0.4 ML SYRINGE SQ SCH (09:34)
[2020-12-14] MEDS: FAMOTIDINE 20 MG TAB PO SCH ×2 (09:34→21:13)
[2020-12-14] MEDS: busPIRone HCl 10 MG TAB PO SCH ×2 (09:34→21:13)
[2020-12-14] MEDS: CYANOCOBALAMIN 500 MCG TAB PO SCH (09:34)
[2020-12-14] MEDS: risperiDONE 0.5 MG TAB PO SCH ×2 (09:34→21:19)
[2020-12-14] MEDS: DEXAMETHASONE SOD PHOSPHATE 10 MG/ML 1 ML VIAL IV SCH (09:34)
[2020-12-14] MEDS: LINAGLIPTIN 5 MG TABLET PO SCH (09:34)
--- NOTE | 2020-12-14 10:13 | P.PN ---
Subjective Progress Note Date: 12/14/20 75-year-old white female patient who is a poor historian, with past medical history of hypertension, hyperlipidemia, diabetes mellitus, osteoarthritis, hypothyroidism, anxiety, who was brought into the emergency department on 12/11/2020 at 4:00 in the morning per EMS for evaluation of altered mental sta tus. Apparently patient had developed upper respiratory symptoms and was tested for COVID 19 which was reportedly negative. She was given antibiotics for the infection, however she was increasingly more disoriented and last night she was less responsive and she was brought in to be evaluated. Patient tested positive for COVID 19 in the ER. CBC showed white blood cell count of 9.5, hemoglobin is 14.1, d-dimer is 0.48, sodium is 132, the rest of electrolytes were unremarkable, BUN is 23, creatinine is 0.89 plasma lactic acid 0.9. LFTs were within normal limits, there was a troponin leak of 0.065, and 0.062, patient denies any shortness of breath, she seems to be breathing comfortably, she is a poor historian, she is confused, she does not know the place or the mouth or the year or the president, no cough, lung sounds reveal some mild crackles, no wheezing, no cough no hemoptysis, urinalysis is without sign of infection. Patient is currently on 3 L of oxygen pulse ox is 93%. Patient was febrile on presentation with a T-max of 104.6F. Chest x-ray showed mild diffuse airspace opacities in both lungs. While she is resting fairly comfortably on the gurney in the emergency department awaiting a bed to go to medical surgical floor. Progress note dated 12/12/2020. This is a 75-year-old female who was seen by our team yesterday for evaluation. She is a very poor historian, and is very confused. She has a history of hypertension diabetes, hyperlipidemia, osteoarthritis, hypothyroidism, and anxiety. She was brought into the emergency department by EMS for altered mental status. Apparently, the patient developed upper respiratory tract symptoms, and was tested for coronavirus, and apparently initially tested negative. In the ER, on this admission, the patient did test positive. She is very confused. She has a sitter in the room. She is on 3 L nasal cannula. She is not manifesting any signs or symptoms of respiratory distress. Labs today include a d-dimer which is 1.08, a glucose which is 128, and a C-reactive protein which is 75. Computed tomography scan of the brain showed moderate bifrontal atrophy and moderate patchy small vessel ischemic changes. Chest x- ray shows patchy bilateral infiltrates. The patient is seen today 12/13/2020 in follow-up on the selective care unit. She is currently resting in bed. Quite restless. She does have significant dementia she is confused and disoriented. Her is at the bedside now. She is requiring 15 L high flow nasal cannula plus a nonrebreather mask to maintain O2 saturations in the low 80s. D-dimer 1.50. C-reactive protein 68.1. Blood glucose 125. She is continued on vitamin supplements, Decadron, Lovenox. On 12/14/2020 the patient is being seen in follow-up. The patient was hospita lized with COVID 19 related pneumonia and the patient also had altered mental status. ptocal level was 0.1. CRP was elevated at 68. The patient checked positive for COVID 19 infection. The patient currently is on Decadron 6 IV every 24 hours. The patient is also on Lovenox 40 mg subcu every 24 hours. Computed tomography scan of the brain showed moderate bilateral atrophy and moderate patchy burden of chronic small vessel ischemic disease. I could've her mouth is a been noted. The patient is known to have multiple comorbidities including hypertension, hyperlipidemia, diabetes mellitus, hypothyroidism and chronic anxiety. There may be also a component of dementia. She is a poor h istorian. She was O2 15 by nasal cannula and addition to a nonrebreather facemask to maintain a saturation above 90%. Currently, overnight, the patient decompensated and the patient went on a BiPAP and the current BiPAP settings are 12/6 with an FiO2 of 100%. The generator tidal volume is in order of 590 mL with a respiratory rate of 31 and a minute ventilation of 17.9. The patient's chest x-ray is showing interval worsening of the bilateral pulmonary infiltrates and infiltrates are quite extensive involving both lungs. There is moderate to diffuse bilateral interstitial infiltrates Objective - Vital Signs Vital signs: Vital Signs Temp 98.2 F 12/14/20 08:00 Pulse 77 12/14/20 08:00 Resp 27 H 12/14/20 08:00 BP 141/85 12/14/20 08:00 Pulse Ox 93 L 12/14/20 08:00 Intake & Output 12/13/20 12/14/20 12/14/20 18:59 06:59 18:59 Intake Total 0 10 Balance 0 10 Weight 83.5 kg Intake: Intake, IV Titration 10 Amount Sodium Chloride 0.9% 1, 10 000 ml @ 130 mls/hr IV . Q7H42M [facility] Rx#:[id number] Oral 0 Other: Voiding Method Bedside Commode Diaper Incontinent # Voids 2 2 - Exam GENERAL EXAM: Alert, confused, disoriented 75-year-old female patient, on BiPAP of 08/09 with an FiO2 of 100%, quite lethargic, very slow in response. No agitation for now and there is a sitter at the bedside. The patient is quite thickened In [id number] degree of respiratory distress. No use of access ory muscles of breathing. HEAD: Normocephalic. EYES: Normal reaction of pupils, equal size. NOSE: Clear with pink turbinates. THROAT: No erythema or exudates. NECK: No masses, no JVD. CHEST: No chest wall deformity. LUNGS: Equal air entry with crackles in the bilateral posterior bases. CVS: S1 and S2 normal with no audible murmur, regular rhythm. ABDOMEN: No hepatosplenomegaly, normal bowel sounds, no guarding or rigidity. SPINE: No scoliosis or deformity SKIN: No rashes CENTRAL NERVOUS SYSTEM: No focal deficits, tone is normal in all 4 extremities. EXTREMITIES: There is no peripheral edema. No clubbing, no cyanosis. Peripheral pulses are intact. - Labs CBC & Chem 7: 12/11/20 04:41 12/11/20 04:41 Labs: Abnormal Lab Results - Last 24 Hours (Table) 12/13/20 12/13/20 12/13/20 Range/Units 11:42 16:42 20:49 POC Glucose (mg/dL) 125 H 155 H 176 H (75-99) mg/dL 12/14/20 12/14/20 Range/Units 03:11 06:28 POC Glucose (mg/dL) 148 H 120 H (75-99) mg/dL Microbiology - Last 24 Hours (Table) 12/11/20 04:45 Blood Culture - Preliminary Blood No Growth after 72 hours 12/11/20 04:30 Blood Culture - Preliminary Blood No Growth after 72 hours Assessment and Plan Plan: 1 Altered mental status, of unclear etiology, CAT scan of the brain is showing chronic small vessel ischemic changes and severe atrophy. There may be an underlying dementia in addition to Covid 19 related encephalopathy. 2 Acute COVID 19 pneumonia with hypoxic respiratory failure, the onset of symptoms is unclear. Patient is a poor historian, she had a positive COVID 19 test last Monday 6 days ago after having symptoms of upper respiratory infection. The timeline of symptom onset is unclear. The patient has acute hypoxic respiratory failure and the patient has transitioned from high flow oxygen and to a BiPAP at a pressure of 12/6 cm of water with an FiO2 of 100%. In addition, the chest x-ray shows significant worsening of the back to pulmonary infiltrates. 3 Mild troponin leak, echocardiogram showing normal ventricular ejection fraction, EF is about 55% 4 Mild hyponatremia, possibly hypovolemic, sodium level is improved 5 Hypertension 6 Hyperlipidemia 7 Diabetes mellitus type 2 8 Hypothyroidism 10 Osteoarthritis 11 Anxiety Plan: Continue BiPAP therapy at a pressure of 12/6 FiO2 100%. Condition is critical and the patient's chest x-ray has gotten worse and the patient is currently on Decadron and Lovenox and multivitamin supplements. Her condition is guarded and poor DO NOT RESUSCITATE/DO NOT INTUBATE CODE STATUS We will continue Lovenox, dexamethasone, vitamin supplements Echocardiogram was noted Computed tomography scan of the brain was noted We will continue to follow and make further recommendations based on her clinical status There is obvious signs of progression and the patient is doing poorly at this point in time on BiPAP. The blood work will be repeated. We'll continue to follow.
[2020-12-14] MEDS: CHOLECALCIFEROL 25 MCG (1000 IU) TABLET PO SCH (10:57)
[2020-12-14] MEDS: MULTIVITAMINS, THERA 1 EACH TAB PO SCH (10:57)
[2020-12-14 11:20] LABS: African American GFR (CKD) >90 (>60 ml/min/1.73 sqM); Anion Gap 6 mmol/L; Blood Urea Nitrogen 19 mg/dL (7-17); Calcium 8.5 mg/dL (8.4-10.2); Carbon Dioxide 21 mmol/L (22-30); Chloride 108 mmol/L (98-107); Glucose 116 mg/dL (74-99); Non-African American GFR(CKD) >90 (>60 ml/min/1.73 sqM); Sodium 135 mmol/L (137-145)
[2020-12-14 11:21] LABS: LDH 1806 U/L (313-618); Potassium 4.2 mmol/L (3.5-5.1)
[2020-12-14 11:29] LABS: Glucose,Whole Blood 116 mg/dL (75-99)
[2020-12-14 11:52] LABS: C Reactive Protein 86.4 mg/L (<10.0)
[2020-12-14 16:38] LABS: Glucose,Whole Blood 241 mg/dL (75-99)
[2020-12-14 20:24] LABS: Glucose,Whole Blood 164 mg/dL (75-99)
--- NOTE | 2020-12-14 22:37 | P.PN ---
Progress Note - Text Progress Note Date: 12/14/20 Chief Complaint: Increase in confusion History of presenting complaint: This is a 75-year-old patient who follows with Dr. Kory Pearce. Chronic stable medical conditions include diabetes, hypertension, hyperlipidemia, prostatitis, hypothyroid. Patient has a baseline dementia. With cognitive impairment. 5 days ago on Monday patient is having upper respiratory tract infection symptoms. Apparently patient tested negative for COVID. Was given antibiotics to go home with. Last night patient became increasingly confused and less responsive. Brought into the ER. Patient is found to be a bit delirious with a fever up to 104.6. And pulse ox this morning was 92% on 3 L. Patient not able to give much of a history. Because underlying dementia. She is only able to answer simple questions. She does not know why she is or why she is here. When I walked in the room she was talking to her on the phone, making simple conversation Admitted with bilateral COVID 19 pneumonia, acute hypoxic respiratory failure, sepsis, acute delirium. Started on IV dexamethasone, subcu Lovenox. Oxygen requirement has been going up. Up to 15 L nasal cannula. Today: Early hours of this morning patient went into respiratory distress. Was placed on a BiPAP. Current setting of 12/6/100%. Short of breath. Delirious. Has a sitter Review of systems: Unable to obtain Active Medications Acetaminophen (Acetaminophen Tab 325 Mg Tab) 650 mg PO Q6HR PRN PRN Reason: Mild Pain or Fever > 100.5 Amlodipine Besylate (Amlodipine 5 Mg Tab) 5 mg PO DAILY [facility] Last Admin: 12/14/20 09:33 Dose: 5 mg Documented by: Ascorbic Acid (Ascorbic Acid 500 Mg Tab) 1,000 mg PO DAILY [facility] Last Admin: 12/14/20 09:33 Dose: 1,000 mg Documented by: Aspirin (Aspirin 81 Mg) 81 mg PO DAILY [facility] Last Admin: 12/14/20 09:33 Dose: 81 mg Documented by: Atorvastatin Calcium (Atorvastatin 20 Mg Tab) 20 mg PO DAILY [facility] Last Admin: 12/14/20 09:33 Dose: 20 mg Documented by: Buspirone HCl (Buspirone Hcl 10 Mg Tab) 10 mg PO BID [facility] Last Admin: 12/14/20 21:13 Dose: 10 mg Documented by: Cholecalciferol (Cholecalciferol 25 Mcg (1000 Iu) Tablet) 25 mcg PO DAILY [facility] Last Admin: 12/14/20 10:57 Dose: Not Given Documented by: Citalopram Hydrobromide (Citalopram Hydrobromide 20 Mg Tab) 40 mg PO DAILY [facility] Last Admin: 12/14/20 09:34 Dose: 40 mg Documented by: Cyanocobalamin (Cyanocobalamin 500 Mcg Tab) 5,000 mcg PO DAILY [facility] Last Admin: 12/14/20 09:34 Dose: 5,000 mcg Documented by: Dexamethasone Sodium Phosphate (Dexamethasone Sod Phosphate 10 Mg/Ml 1 Ml Vial) 6 mg IV DAILY [facility] Last Admin: 12/14/20 09:34 Dose: 6 mg Documented by: Enoxaparin Sodium (Enoxaparin 40 Mg/0.4 Ml Syringe) 40 mg SQ DAILY [facility] Last Admin: 12/14/20 09:34 Dose: 40 mg Documented by: Famotidine (Famotidine 20 Mg Tab) 20 mg PO BID [facility] Last Admin: 12/14/20 21:13 Dose: 20 mg Documented by: Haloperidol Lactate (Haloperidol Lactate 5 Mg/Ml 1 Ml Vial) 2 mg IVP Q4HR PRN PRN Reason: Agitation or Acute Psychosis Last Admin: 12/14/20 03:19 Dose: 2 mg Documented by: Sodium Chloride (Saline 0.9%) 1,000 mls @ 130 mls/hr IV .Q7H42M [facility] Last Admin: 12/14/20 21:23 Dose: 130 mls/hr Documented by: Lamotrigine (Lamotrigine 25 Mg Tab) 25 mg PO BID [facility] Last Admin: 12/14/20 21:13 Dose: 25 mg Documented by: Levothyroxine Sodium (Levothyroxine 88 Mcg Tab) 88 mcg PO DAILY@0630 [facility] Last Admin: 12/14/20 06:09 Dose: 88 mcg Documented by: Linagliptin (Linagliptin 5 Mg Tablet) 5 mg PO DAILY [facility] Last Admin: 12/14/20 09:34 Dose: 5 mg Documented by: Multivitamins (Multivitamins, Thera 1 Each Tab) 1 each PO DAILY [facility] Last Admin: 12/14/20 10:57 Dose: Not Given Documented by: Naloxone HCl (Naloxone 0.4 Mg/Ml 1 Ml Vial) 0.2 mg IV Q2M PRN PRN Reason: Opioid Reversal Propranolol HCl (Propranolol 10 Mg Tab) 10 mg PO BID [facility] Last Admin: 12/14/20 21:13 Dose: 10 mg Documented by: Risperidone (Risperidone 0.5 Mg Tab) 0.5 mg PO BID [facility] Last Admin: 12/14/20 21:19 Dose: 0.5 mg Documented by: Zinc Sulfate (Zinc Sulfate 220 Mg Cap) 220 mg PO DAILY [facility] Last Admin: 12/14/20 09:33 Dose: 220 mg Documented by: Past medical history to include: Diabetes, hypertension, hyperlipidemia, osteoarthritis, hypothyroid, tremor in the left arm, anxiety Social history: Lives with her . Smoking for over 40 years about quarter pack a day. Alcohol rarely. Family history: Patient cannot tell Physical examination: VITAL SIGNS: 98.2, 77, 27, 1 41/85, 93% on 100% BiPAP GENERAL: Laying in bed, slightly delirious, with a BiPAP LUNGS: Respiratory rate increased, . PSYCH: Disoriented. NEUROLOGICAL: Cranial nerves grossly intact; no facial asymmetry, moving all 4 limbs Rest of the exam as per pulmonary INVESTIGATIONS, reviewed in the clinical context: December 14: Potassium 4.2 creatinine 0.59 CRP 86.4 December 13: D-dimer 1.5 CRP 68 December 12: D-dimer 1.08 CRP 74.6 WBC 9.5 hemoglobin 14.1 platelets 160 potassium 4.1 creatinine 0.89 Troponin I 0.065, 0.062, UA-negative Coronavirus [PCR]-detected EKG tracing personally reviewed by me-normal sinus rhythm, poor quality baseline Chest x-ray film personally reviewed by me-bilateral infiltrates Assessment and plan: -Acute bilateral COVID 19 pneumonia with symptoms starting about 6 days prior to admission-slow to respond IV Decadron subcu Lovenox vitamin C vitamin D Zinc Pepcid. -Sepsis from COVID 19 pneumonia IV fluids -Acute hypoxic respiratory failure from pneumonia-worsening Placed on BiPAP at 100% -Acute delirium from sepsis-not improving Follow closely -Major cognitive impairment from underlying Alzheimer's dementia late onset type, with agitation Continue with Loreta Travis -COPD in a current smoker Continue with home inhalers bronchodilators -Chronic nicotine dependence patient cigarette smoker At nicotine patch -Diabetes mellitus type 2 on oral hypoglycemic Expect Accu-Cheks to climb because of dexamethasone. Follow Accu-Cheks and coverage -Hypothyroid Continue with Synthroid -Essential hypertension Continue with amlodipine and propranolol -No code Prognosis remains guarded. Continue current medication treatment plan.
[2020-12-15] MEDS: LEVOTHYROXINE 88 MCG TAB PO SCH (05:47)
[2020-12-15] MEDS: HALOPERIDOL LACTATE 5 MG/ML 1 ML VIAL IVP PRN ×4 (05:47→20:09)
[2020-12-15] MEDS: SODIUM CHLORIDE 0.9% 1,000 ML IV SCH ×2 (05:51→16:31)
[2020-12-15 06:17] LABS: Glucose,Whole Blood 122 mg/dL (75-99)
[2020-12-15 08:21] LABS: African American GFR (CKD) >90 (>60 ml/min/1.73 sqM); Anion Gap 8 mmol/L; Blood Urea Nitrogen 21 mg/dL (7-17); Calcium 8.4 mg/dL (8.4-10.2); Carbon Dioxide 23 mmol/L (22-30); Chloride 106 mmol/L (98-107); Glucose 109 mg/dL (74-99); Non-African American GFR(CKD) 89 (>60 ml/min/1.73 sqM); Potassium 4.2 mmol/L (3.5-5.1); Sodium 137 mmol/L (137-145)
[2020-12-15 08:35] LABS: C Reactive Protein 186.6 mg/L (<10.0); LDH 1985 U/L (313-618)
[2020-12-15] MEDS: ENOXAPARIN 40 MG/0.4 ML SYRINGE SQ SCH (09:10)
[2020-12-15] MEDS: busPIRone HCl 10 MG TAB PO SCH ×3 (09:11→20:29)
[2020-12-15] MEDS: FAMOTIDINE 20 MG TAB PO SCH ×3 (09:11→20:29)
[2020-12-15] MEDS: ZINC SULFATE 220 MG CAP PO SCH ×2 (09:11→12:11)
[2020-12-15] MEDS: CHOLECALCIFEROL 25 MCG (1000 IU) TABLET PO SCH ×2 (09:12→12:10)
[2020-12-15] MEDS: MULTIVITAMINS, THERA 1 EACH TAB PO SCH ×2 (09:12→12:11)
[2020-12-15] MEDS: ATORVASTATIN 20 MG TAB PO SCH ×2 (09:12→12:10)
[2020-12-15] MEDS: risperiDONE 0.5 MG TAB PO SCH ×2 (09:12→20:29)
[2020-12-15] MEDS: ASPIRIN 81 MG PO SCH ×2 (09:12→12:09)
[2020-12-15] MEDS: CITALOPRAM HYDROBROMIDE 20 MG TAB PO SCH ×2 (09:12→12:10)
[2020-12-15] MEDS: ASCORBIC ACID 500 MG TAB PO SCH ×2 (09:12→12:09)
[2020-12-15] MEDS: amLODIPine 5 MG TAB PO SCH ×2 (09:12→12:09)
[2020-12-15] MEDS: LINAGLIPTIN 5 MG TABLET PO SCH ×2 (09:12→12:11)
[2020-12-15] MEDS: DEXAMETHASONE SOD PHOSPHATE 10 MG/ML 1 ML VIAL IV SCH (09:15)
[2020-12-15] MEDS: CYANOCOBALAMIN 500 MCG TAB PO SCH (09:25)
[2020-12-15] MEDS: lamoTRIgine 25 MG TAB PO SCH ×2 (09:25→20:29)
[2020-12-15] MEDS: PROPRANOLOL 10 MG TAB PO SCH ×2 (09:25→20:29)
--- NOTE | 2020-12-15 10:33 | P.PN ---
Subjective Progress Note Date: 12/15/20 Principal diagnosis: 75-year-old white female patient who is a poor historian, with past medical history of hypertension, hyperlipidemia, diabetes mellitus, osteoarthritis, hypo thyroidism, anxiety, who was brought into the emergency department on 12/11/2020 at 4:00 in the morning per EMS for evaluation of altered mental status. Apparently patient had developed upper respiratory symptoms and was tested for COVID 19 which was reportedly negative. She was given antibiotics for the infection, however she was increasingly more disoriented and last night she was less responsive and she was brought in to be evaluated. Patient tested positive for COVID 19 in the ER. CBC showed white blood cell count of 9.5, hemoglobin is 14.1, d-dimer is 0.48, sodium is 132, the rest of electrolytes were unremarkable, BUN is 23, creatinine is 0.89 plasma lactic acid 0.9. LFTs were within normal limits, there was a troponin leak of 0.065, and 0.062, patient denies any shortness of breath, she seems to be breathing comfortably, she is a poor historian, she is confused, she does not know the place or the mouth or the year or the president, no cough, lung sounds reveal some mild cr ackles, no wheezing, no cough no hemoptysis, urinalysis is without sign of infection. Patient is currently on 3 L of oxygen pulse ox is 93%. Patient was febrile on presentation with a T-max of 104.6F. Chest x-ray showed mild diffuse airspace opacities in both lungs. While she is resting fairly comfortably on the gurney in the emergency department awaiting a bed to go to medical surgical floor. Progress note dated 12/12/2020. This is a 75-year-old female who was seen by our team yesterday for evaluation. She is a very poor historian, and is very confused. She has a history of hypertension diabetes, hyperlipidemia, osteoarthritis, hypothyroidism, and anxiety. She was brought into the emergency department by EMS for altered mental status. Apparently, the patient developed upper respiratory tract symptoms, and was tested for coronavirus, and apparently initially tested negative. In the ER, on this admission, the patient did test positive. She is very confused. She has a sitter in the room. She is on 3 L nasal cannula. She is not manifesting any signs or symptoms of respiratory distress. Labs today include a d-dimer which is 1.08, a glucose which is 128, and a C-reactive protein which is 75. Computed tomography scan of the brain showed moderate bifrontal atrophy and moderate patchy small vessel ischemic changes. Chest x- ray shows patchy bilateral infiltrates. The patient is seen today 12/13/2020 in follow-up on the selective care unit. She is currently resting in bed. Quite restless. She does have significant dementia she is confused and disoriented. Her is at the bedside now. She is requiring 15 L high flow nasal cannula plus a nonrebreather mask to maintain O2 saturations in the low 80s. D-dimer 1.50. C-reactive protein 68.1. Blood glucose 125. She is continued on vitamin supplements, Decadron, Lovenox. On 12/14/2020 the patient is being seen in follow-up. The patient was hospitalized with COVID 19 related pneumonia and the patient also had altered mental status. ptocal level was 0.1. CRP was elevated at 68. The patient chec ked positive for COVID 19 infection. The patient currently is on Decadron 6 IV every 24 hours. The patient is also on Lovenox 40 mg subcu every 24 hours. Computed tomography scan of the brain showed moderate bilateral atrophy and moderate patchy burden of chronic small vessel ischemic disease. I could've her mouth is a been noted. The patient is known to have multiple comorbidities including hypertension, hyperlipidemia, diabetes mellitus, hypothyroidism and chronic anxiety. There may be also a component of dementia. She is a poor historian. She was O2 15 by nasal cannula and addition to a nonrebreather facemask to maintain a saturation above 90%. Currently, overnight, the patient decompensated and the patient went on a BiPAP and the current BiPAP settings are 12/6 with an FiO2 of 100%. The generator tidal volume is in order of 590 mL with a respiratory rate of 31 and a minute ventilation of 17.9. The patient's chest x-ray is showing interval worsening of the bilateral pulmonary infiltrates and infiltrates are quite extensive involving both lungs. There is moderate to diffuse bilateral interstitial infiltrates On 12/15/2020 patient is being seen for a follow-up. The patient remains on BiPAP at a pressure of 12/6 cm of water. The patient is able to generate a tid al volume of 475 with a rate of 35. Her current FiO2 on the BiPAP machine is around 100% and her pulse ox is around 82%. She is synchronous with the BiPAP mask. She remains on Decadron 6 mg IV every 24 hours. She is also on Lovenox 40 mg subcu every 24 hours and she is also on normal saline at the rate of 100 mL an hour. Mental status is still altered. Note that the patient has some dementia. Her d-dimer today's at 2.7 the patient's LDH level was 195 and the CRP is at 186 and the inflammatory markers are still elevated. Function is stable. Electrolytes are stable. Chest x-ray from yesterday showed moderate to severe bilateral infiltrates throughout the lung redmond bilaterally. PH looks quite debilitated. Her breathing is somewhat labored even on the BiPAP. Pulse ox in the mid 80s. I made recommendations for comfort care measures if the is quite hesitant to take that option. She is a DNR/DNI CODE STATUS. She does have underlying dementia and significant impairment of cognitive functions. Objective - Vital Signs Vital signs: Vital Signs Temp 99.3 F 12/15/20 04:00 Pulse 75 12/15/20 04:00 Resp 34 H 12/15/20 04:00 BP 99/51 12/15/20 04:00 Pulse Ox 90 L 12/15/20 04:00 Intake & Output 12/14/20 12/15/20 12/15/20 18:59 06:59 18:59 Intake Total 150 Output Total 800 Balance -650 Weight 74 kg Intake: Intake, IV Titration 150 Amount Sodium Chloride 0.9% 1, 150 000 ml @ 130 mls/hr IV . Q7H42M [facility] Rx#:[id number] Output: Urine 800 Other: Voiding Method Diaper External Catheter Incontinent # Voids 1 - Exam GENERAL EXAM: Alert, confused, disoriented 75-year-old female patient, on BiPAP of 08/09 with an FiO2 of 100%, quite lethargic, very slow in response. No agitation for now and there is a sitter at the bedside. The patient is quite thickened In [id number] degree of respiratory distress. There is some use of accessory muscles of breathing. HEAD: Normocephalic. EYES: Normal reaction of pupils, equal size. NOSE: Clear with pink turbinates. THROAT: No erythema or exudates. NECK: No masses, no JVD. CHEST: No chest wall deformity. LUNGS: Equal air entry with crackles in the bilateral posterior bases. CVS: S1 and S2 normal with no audible murmur, regular rhythm. ABDOMEN: No hepatosplenomegaly, normal bowel sounds, no guarding or rigidity. SPINE: No scoliosis or deformity SKIN: No rashes CENTRAL NERVOUS SYSTEM: No focal deficits, tone is normal in all 4 extremities. EXTREMITIES: There is no peripheral edema. No clubbing, no cyanosis. Peripheral pulses are intact. - Labs CBC & Chem 7: 12/11/20 04:41 12/15/20 05:33 Labs: Abnormal Lab Results - Last 24 Hours (Table) 12/14/20 12/14/20 12/14/20 Range/Units 10:34 11:27 16:36 D-Dimer (<0.60) mg/L FEU Sodium 135 L (137-145) mmol/L Chloride 108 H (98-107) mmol/L Carbon Dioxide 21 L (22-30) mmol/L BUN 19 H (7-17) mg/dL Glucose 116 H (74-99) mg/dL POC Glucose (mg/dL) 116 H 241 H (75-99) mg/dL Lactate Dehydrogenase 1806 H (313-618) U/L C-Reactive Protein 86.4 H (<10.0) mg/L 12/14/20 12/15/20 12/15/20 Range/Units 20:22 05:33 05:33 D-Dimer 2.70 H (<0.60) mg/L FEU Sodium (137-145) mmol/L Chloride (98-107) mmol/L Carbon Dioxide (22-30) mmol/L BUN 21 H (7-17) mg/dL Glucose 109 H (74-99) mg/dL POC Glucose (mg/dL) 164 H (75-99) mg/dL Lactate Dehydrogenase 1985 H (313-618) U/L C-Reactive Protein 186.6 H (<10.0) mg/L 12/15/20 Range/Units 06:16 D-Dimer (<0.60) mg/L FEU Sodium (137-145) mmol/L Chloride (98-107) mmol/L Carbon Dioxide (22-30) mmol/L BUN (7-17) mg/dL Glucose (74-99) mg/dL POC Glucose (mg/dL) 122 H (75-99) mg/dL Lactate Dehydrogenase (313-618) U/L C-Reactive Protein (<10.0) mg/L Microbiology - Last 24 Hours (Table) 12/11/20 04:45 Blood Culture - Preliminary Blood No Growth after 96 hours 12/11/20 04:30 Blood Culture - Preliminary Blood No Growth after 96 hours Assessment and Plan Plan: 1 Altered mental status, of unclear etiology, CAT scan of the brain is showing chronic small vessel ischemic changes and severe atrophy. There may be an underlying dementia in addition to Covid 19 related encephalopathy. Neurologically, still impaired and unchanged and there is a sitter at the bedside. 2 Acute COVID 19 pneumonia with hypoxic respiratory failure, the onset of symptoms is unclear. Patient is a poor historian, she had a positive COVID 19 test last Monday 6 days ago after having symptoms of upper respiratory infection. The timeline of symptom onset is unclear. The patient has acute hypoxic respiratory failure and the patient has transitioned from high flow oxygen and to a BiPAP at a pressure of 12/6 cm of water with an FiO2 of 100%. In addition, the chest x-ray shows significant worsening of the back to pulmonary infiltrates. Note that the patient's condition essentially unchanged. The patient is very much BiPAP dependent. Pulse ox is in the mid 80s even on 100% FiO2. I may increase to EPAP slightly. Nevertheless, the patient's long- term prognosis poor based on her underlying COVID related pneumonia and poor baseline performance and functional status and underlying dementia. 3 Mild troponin leak, echocardiogram showing normal ventricular ejection fraction, EF is about 55% 4 Mild hyponatremia, possibly hypovolemic, sodium level is improved 5 Hypertension 6 Hyperlipidemia 7 Diabetes mellitus type 2 8 Hypothyroidism 10 Osteoarthritis 11 Anxiety Plan: Continue BiPAP and she is a sitting to a BiPAP pressure of 14/10 cm of water with a FiO2 100%. Condition is critical and the patient's chest x-ray has gotten worse yesterda ychestx-ray Decadron and Lovenox and multivitamin supplements. Her condition is guarded and poor DO NOT RESUSCITATE/DO NOT INTUBATE CODE STATUS We will continue Lovenox, dexamethasone, vitamin supplements Echocardiogram was noted Computed tomography scan of the brain was noted Consider comfort care measures. I'm going to discuss this with the medical team and hopefully will be able to talk to the family again about her post status and long-term prognosis and ultrasound which is obviously poor and the patient would likely not recover from his underlying massive pneumonia.
[2020-12-15 11:37] LABS: Glucose,Whole Blood 138 mg/dL (75-99)
--- NOTE | 2020-12-15 11:53 | XR ---
EXAMINATION TYPE: XR chest 1V portable DATE OF EXAM: 12/15/2020 COMPARISON: 12/14/2020 HISTORY: Shortness of breath TECHNIQUE: Single frontal view of the chest is obtained. FINDINGS: Diffuse bilateral airspace disease. Postsurgical change overlying the cervical spine. Diff use osteopenia. Heart size normal. No pleural effusion or pneumothorax. IMPRESSION: Stable diffuse bilateral infiltrates.
[2020-12-15 16:52] LABS: Glucose,Whole Blood 157 mg/dL (75-99)
[2020-12-15 20:09] LABS: Glucose,Whole Blood 169 mg/dL (75-99)
--- NOTE | 2020-12-15 21:08 | P.PN ---
Progress Note - Text Progress Note Date: 12/15/20 Chief Complaint: Increase in confusion History of presenting complaint: This is a 75-year-old patient who follows with Dr. Kory Pearce. Chronic stable medical conditions include diabetes, hypertension, hyperlipidemia, prostatitis, hypothyroid. Patient has a baseline dementia. With cognitive impairment. 5 days ago on Monday patient is having upper respiratory tract infection symptoms. Apparently patient tested negative for COVID. Was given antibiotics to go home with. Last night patient became increasingly confused and less responsive. Brought into the ER. Patient is found to be a bit delirious with a fever up to 104.6. And pulse ox this morning was 92% on 3 L. Patient not able to give much of a history. Because underlying dementia. She is only able to answer simple questions. She does not know why she is or why she is here. When I walked in the room she was talking to her on the phone, making simple conversation Admitted with bilateral COVID 19 pneumonia, acute hypoxic respiratory failure, sepsis, acute delirium. Started on IV dexamethasone, subcu Lovenox. Oxygen requirement has been going up. Up to 15 L nasal cannula. Worsening. Placed on BiPAP Today: Remains in delirium. BiPAP. Short of breath. Sitting at the bedside. Try to make some sounds Review of systems: Unable to obtain Active Medications Acetaminophen (Acetaminophen Tab 325 Mg Tab) 650 mg PO Q6HR PRN PRN Reason: Mild Pain or Fever > 100.5 Amlodipine Besylate (Amlodipine 5 Mg Tab) 5 mg PO DAILY [facility] Last Admin: 12/15/20 12:09 Dose: Not Given Documented by: Ascorbic Acid (Ascorbic Acid 500 Mg Tab) 1,000 mg PO DAILY [facility] Last Admin: 12/15/20 12:09 Dose: Not Given Documented by: Aspirin (Aspirin 81 Mg) 81 mg PO DAILY [facility] Last Admin: 12/15/20 12:09 Dose: Not Given Documented by: Atorvastatin Calcium (Atorvastatin 20 Mg Tab) 20 mg PO DAILY [facility] Last Admin: 12/15/20 12:10 Dose: Not Given Documented by: Buspirone HCl (Buspirone Hcl 10 Mg Tab) 10 mg PO BID [facility] Last Admin: 12/15/20 20:29 Dose: Not Given Documented by: Cholecalciferol (Cholecalciferol 25 Mcg (1000 Iu) Tablet) 25 mcg PO DAILY [facility] Last Admin: 12/15/20 12:10 Dose: Not Given Documented by: Citalopram Hydrobromide (Citalopram Hydrobromide 20 Mg Tab) 40 mg PO DAILY [facility] Last Admin: 12/15/20 12:10 Dose: Not Given Documented by: Cyanocobalamin (Cyanocobalamin 500 Mcg Tab) 5,000 mcg PO DAILY [facility] Last Admin: 12/15/20 09:25 Dose: Not Given Documented by: Dexamethasone Sodium Phosphate (Dexamethasone Sod Phosphate 10 Mg/Ml 1 Ml Vial) 6 mg IV DAILY [facility] Last Admin: 12/15/20 09:15 Dose: 6 mg Documented by: Enoxaparin Sodium (Enoxaparin 40 Mg/0.4 Ml Syringe) 40 mg SQ DAILY [facility] Last Admin: 12/15/20 09:10 Dose: 40 mg Documented by: Famotidine (Famotidine 20 Mg Tab) 20 mg PO BID [facility] Last Admin: 12/15/20 20:29 Dose: Not Given Documented by: Haloperidol Lactate (Haloperidol Lactate 5 Mg/Ml 1 Ml Vial) 2 mg IVP Q4HR PRN PRN Reason: Agitation or Acute Psychosis Last Admin: 12/15/20 20:09 Dose: 2 mg Documented by: Sodium Chloride (Saline 0.9%) 1,000 mls @ 130 mls/hr IV .Q7H42M [facility] Last Admin: 12/15/20 16:31 Dose: Not Given Documented by: Lamotrigine (Lamotrigine 25 Mg Tab) 25 mg PO BID [facility] Last Admin: 12/15/20 20:29 Dose: Not Given Documented by: Levothyroxine Sodium (Levothyroxine 88 Mcg Tab) 88 mcg PO DAILY@0630 [facility] Last Admin: 12/15/20 05:47 Dose: 88 mcg Documented by: Linagliptin (Linagliptin 5 Mg Tablet) 5 mg PO DAILY [facility] Last Admin: 12/15/20 12:11 Dose: Not Given Documented by: Multivitamins (Multivitamins, Thera 1 Each Tab) 1 each PO DAILY [facility] Last Admin: 12/15/20 12:11 Dose: Not Given Documented by: Naloxone HCl (Naloxone 0.4 Mg/Ml 1 Ml Vial) 0.2 mg IV Q2M PRN PRN Reason: Opioid Reversal Propranolol HCl (Propranolol 10 Mg Tab) 10 mg PO BID [facility] Last Admin: 04/13/21 20:29 Dose: Not Given Documented by: Risperidone (Risperidone 0.5 Mg Tab) 0.5 mg PO BID [facility] Last Admin: 12/15/20 20:29 Dose: Not Given Documented by: Zinc Sulfate (Zinc Sulfate 220 Mg Cap) 220 mg PO DAILY [facility] Last Admin: 12/15/20 12:11 Dose: Not Given Documented by: Past medical history to include: Diabetes, hypertension, hyperlipidemia, osteoarthritis, hypothyroid, tremor in the left arm, anxiety Social history: Lives with her . Smoking for over 40 years about quarter pack a day. Alcohol rarely. Family history: Patient cannot tell Physical examination: VITAL SIGNS: 99.5, 94, 36, 142/65, 88% on BiPAP at 100% GENERAL: Laying in bed, delirious, with a BiPAP LUNGS: Respiratory rate increased, accessory muscles overworking.. PSYCH: Disoriented. NEUROLOGICAL: Cranial nerves grossly intact; no facial asymmetry, moving all 4 limbs Rest of the exam as per pulmonary INVESTIGATIONS, reviewed in the clinical context: December 15: D-dimer 2.7 LDH 1985 CRP 186 December 14: Potassium 4.2 creatinine 0.59 CRP 86.4 December 13: D-dimer 1.5 CRP 68 December 12: D-dimer 1.08 CRP 74.6 WBC 9.5 hemoglobin 14.1 platelets 160 potassium 4.1 creatinine 0.89 Troponin I 0.065, 0.062, UA-negative Coronavirus [PCR]-detected EKG tracing personally reviewed by me-normal sinus rhythm, poor quality baseline Chest x-ray film personally reviewed by me-bilateral infiltrates Assessment and plan: -Acute bilateral COVID 19 pneumonia with symptoms starting about 6 days prior to clinically worsening IV Decadron subcu Lovenox vitamin C vitamin D Zinc Pepcid. -Sepsis from COVID 19 pneumonia IV fluids -Acute hypoxic respiratory failure from not improving on BiPAP at 100% -Acute delirium from sepsis-not improving Follow closely -Major cognitive impairment from underlying Alzheimer's dementia late onset type, with agitation Continue with Loreta Travis -COPD in a current smoker Continue with home inhalers bronchodilators -Chronic nicotine dependence patient cigarette smoker At nicotine patch -Diabetes mellitus type 2 on oral hypoglycemic Expect Accu-Cheks to climb because of dexamethasone. Follow Accu-Cheks and coverage -Hypothyroid Continue with Synthroid -Essential hypertension Continue with amlodipine and propranolol -No code Prognosis remains not good. Continue current medication treatment plan. On 100% BiPAP. Oral intake poor Advanced care planning: I talked to the patient's on the phone. He had come in to see the patient 2 days ago. He understands that the patient is doing poorly. He was updated. He does not want us /patient does suffer. At this point we have discussed to watch for another 24-48 hours see how she does. If there is no significant improvement then hospice may be appropriate. I did want him to come and visit the patient but he told me he is tested positive for COVID this morning. He'll make the decision about the same in the next couple of days depending on the clinical course and further input from us About 20 minutes was spent for a ACP
[2020-12-16] MEDS: HALOPERIDOL LACTATE 5 MG/ML 1 ML VIAL IVP PRN ×4 (03:09→20:27)
[2020-12-16] MEDS: SODIUM CHLORIDE 0.9% 1,000 ML IV SCH ×3 (03:10→14:46)
[2020-12-16] MEDS: LEVOTHYROXINE 88 MCG TAB PO SCH (05:49)
[2020-12-16 06:03] LABS: Glucose,Whole Blood 171 mg/dL (75-99)
[2020-12-16] MEDS: DEXAMETHASONE SOD PHOSPHATE 10 MG/ML 1 ML VIAL IV SCH (08:15)
[2020-12-16] MEDS: ENOXAPARIN 40 MG/0.4 ML SYRINGE SQ SCH (08:15)
--- NOTE | 2020-12-16 11:26 | P.PN ---
Subjective Progress Note Date: 12/16/20 75-year-old white female patient who is a poor historian, with past medical history of hypertension, hyperlipidemia, diabetes mellitus, osteoarthritis, hypothyroidism, anxiety, who was brought into the emergency department on 12/11/2020 at 4:00 in the morning per EMS for evaluation of altered mental sta tus. Apparently patient had developed upper respiratory symptoms and was tested for COVID 19 which was reportedly negative. She was given antibiotics for the infection, however she was increasingly more disoriented and last night she was less responsive and she was brought in to be evaluated. Patient tested positive for COVID 19 in the ER. CBC showed white blood cell count of 9.5, hemoglobin is 14.1, d-dimer is 0.48, sodium is 132, the rest of electrolytes were unremarkable, BUN is 23, creatinine is 0.89 plasma lactic acid 0.9. LFTs were within normal limits, there was a troponin leak of 0.065, and 0.062, patient denies any shortness of breath, she seems to be breathing comfortably, she is a poor historian, she is confused, she does not know the place or the mouth or the year or the president, no cough, lung sounds reveal some mild crackles, no wheezing, no cough no hemoptysis, urinalysis is without sign of infection. Patient is currently on 3 L of oxygen pulse ox is 93%. Patient was febrile on presentation with a T-max of 104.6F. Chest x-ray showed mild diffuse airspace opacities in both lungs. While she is resting fairly comfortably on the gurney in the emergency department awaiting a bed to go to medical surgical floor. Progress note dated 12/12/2020. This is a 75-year-old female who was seen by our team yesterday for evaluation. She is a very poor historian, and is very confused. She has a history of hypertension diabetes, hyperlipidemia, osteoarthritis, hypothyroidism, and anxiety. She was brought into the emergency department by EMS for altered mental status. Apparently, the patient developed upper respiratory tract symptoms, and was tested for coronavirus, and apparently initially tested negative. In the ER, on this admission, the patient did test positive. She is very confused. She has a sitter in the room. She is on 3 L nasal cannula. She is not manifesting any signs or symptoms of respiratory distress. Labs today include a d-dimer which is 1.08, a glucose which is 128, and a C-reactive protein which is 75. Computed tomography scan of the brain showed moderate bifrontal atrophy and moderate patchy small vessel ischemic changes. Chest x- ray shows patchy bilateral infiltrates. The patient is seen today 12/13/2020 in follow-up on the selective care unit. She is currently resting in bed. Quite restless. She does have significant dementia she is confused and disoriented. Her is at the bedside now. She is requiring 15 L high flow nasal cannula plus a nonrebreather mask to maintain O2 saturations in the low 80s. D-dimer 1.50. C-reactive protein 68.1. Blood glucose 125. She is continued on vitamin supplements, Decadron, Lovenox. On 12/14/2020 the patient is being seen in follow-up. The patient was hospita lized with COVID 19 related pneumonia and the patient also had altered mental status. ptocal level was 0.1. CRP was elevated at 68. The patient checked positive for COVID 19 infection. The patient currently is on Decadron 6 IV every 24 hours. The patient is also on Lovenox 40 mg subcu every 24 hours. Computed tomography scan of the brain showed moderate bilateral atrophy and moderate patchy burden of chronic small vessel ischemic disease. I could've her mouth is a been noted. The patient is known to have multiple comorbidities including hypertension, hyperlipidemia, diabetes mellitus, hypothyroidism and chronic anxiety. There may be also a component of dementia. She is a poor h istorian. She was O2 15 by nasal cannula and addition to a nonrebreather facemask to maintain a saturation above 90%. Currently, overnight, the patient decompensated and the patient went on a BiPAP and the current BiPAP settings are 12/6 with an FiO2 of 100%. The generator tidal volume is in order of 590 mL with a respiratory rate of 31 and a minute ventilation of 17.9. The patient's chest x-ray is showing interval worsening of the bilateral pulmonary infiltrates and infiltrates are quite extensive involving both lungs. There is moderate to diffuse bilateral interstitial infiltrates On 12/15/2020 patient is being seen for a follow-up. The patient remains on BiPAP at a pressure of 12/6 cm of water. The patient is able to generate a tidal volume of 475 with a rate of 35. Her current FiO2 on the BiPAP machine is around 100% and her pulse ox is around 82%. She is synchronous with the BiPAP mask. She remains on Decadron 6 mg IV every 24 hours. She is also on Lovenox 40 mg subcu every 24 hours and she is also on normal saline at the rate of 100 mL an hour. Mental status is still altered. Note that the patient has some dementia. Her d-dimer today's at 2.7 the patient's LDH level was 195 and the CRP is at 186 and the inflammatory markers are still elevated. Function is s table. Electrolytes are stable. Chest x-ray from yesterday showed moderate to severe bilateral infiltrates throughout the lung redmond bilaterally. PH looks quite debilitated. Her breathing is somewhat labored even on the BiPAP. Pulse ox in the mid 80s. I made recommendations for comfort care measures if the is quite hesitant to take that option. She is a DNR/DNI CODE STATUS. She does have underlying dementia and significant impairment of cognitive functions. 12/16/2020, the patient is still doing poorly. No change in her condition. She was quite agitated earlier today and the patient was given Haldol to control her agitation. Chest x-ray still showing diffuse bilateral pulmonary infiltrates and infiltrates are probably less dense compared to the earlier chest x-ray from a few days ago. Otherwise, the patient is doing poorly. She is on a BiPAP at a pressure of 14/10 cm of water with a FiO2 of 100%. She remains on Decadron. She remains on Lovenox. She remains on IV fluid with normal saline. Mentally she is altered. She does not follow commands pH is agitated. She is a DNR/DNI CODE STATUS.There markers are on the rise including CRP which is up to 186 and the LDH is up to 1985. Objective - Vital Signs Vital signs: Vital Signs Temp 96.9 F L 12/16/20 08:00 Pulse 105 H 12/16/20 08:00 Resp 30 H 12/16/20 08:00 BP 133/90 12/16/20 08:00 Pulse Ox 90 L 12/16/20 08:00 Intake & Output 12/15/20 12/16/20 12/16/20 18:59 06:59 18:59 Intake Total 1040 Output Total 800 Balance 1040 -800 Intake: Intake, IV Titration 1040 Amount Sodium Chloride 0.9% 1, 1040 000 ml @ 130 mls/hr IV . Q7H42M [facility] Rx#:[id number] Oral 0 Output: Urine 800 Other: Voiding Method External Catheter External Catheter - Exam GENERAL EXAM: Alert, confused, disoriented 75-year-old female patient, on BiPAP of 14/10 with an FiO2 of 100%, quite lethargic, very slow in response. No anju tation for now and there is a sitter at the bedside. The patient is quite thickened In [id number] degree of respiratory distress. There is some use of accessory muscles of breathing. No change in her condition. She is absolutely BiPAP dependent and she desaturates easily when she is moved within the bed. She was quite agitated earlier she was given Haldol and currently she is more sedated. HEAD: Normocephalic. EYES: Normal reaction of pupils, equal size. NOSE: Clear with pink turbinates. THROAT: No erythema or exudates. NECK: No masses, no JVD. CHEST: No chest wall deformity. LUNGS: Equal air entry with crackles in the bilateral posterior bases. CVS: S1 and S2 normal with no audible murmur, regular rhythm. ABDOMEN: No hepatosplenomegaly, normal bowel sounds, no guarding or rigidity. SPINE: No scoliosis or deformity SKIN: No rashes CENTRAL NERVOUS SYSTEM: No focal deficits, tone is normal in all 4 extremities. EXTREMITIES: There is no peripheral edema. No clubbing, no cyanosis. Peripheral pulses are intact. - Labs CBC & Chem 7: 12/11/20 04:41 12/15/20 05:33 Labs: Abnormal Lab Results - Last 24 Hours (Table) 12/15/20 12/15/20 12/15/20 Range/Units 11:35 16:42 20:07 POC Glucose (mg/dL) 138 H 157 H 169 H (75-99) mg/dL 12/16/20 Range/Units 06:01 POC Glucose (mg/dL) 171 H (75-99) mg/dL Microbiology - Last 24 Hours (Table) 12/11/20 04:45 Blood Culture - Preliminary Blood No Growth after 120 hours 12/11/20 04:30 Blood Culture - Preliminary Blood No Growth after 120 hours Assessment and Plan Plan: 1 Altered mental status, of unclear etiology, CAT scan of the brain is showing chronic small vessel ischemic changes and severe atrophy. There may be an underlying dementia in addition to Covid 19 related encephalopathy. Neurologically, still impaired and unchanged and there is a sitter at the bedside. 2 Acute COVID 19 pneumonia with hypoxic respiratory failure, the onset of symptoms is unclear. Patient is a poor historian, she had a positive COVID 19 test last Monday 6 days ago after having symptoms of upper respiratory infection. The timeline of symptom onset is unclear. The patient has acute hypoxic respiratory failure and the patient has transitioned from high flow oxygen and to a BiPAP at a pressure of 14/10 cm of water with an FiO2 of 100%. In addition, the chest x-ray shows significant worsening of the back to pulmonary infiltrates. Note that the patient's condition essentially unchanged. The patient is very much BiPAP dependent. Pulse ox is in the mid 80s even on 100% FiO2. Nevertheless, the patient's long-term prognosis poor based on her un derlying COVID related pneumonia and poor baseline performance and functional status and underlying dementia. 3 Mild troponin leak, echocardiogram showing normal ventricular ejection fraction, EF is about 55% 4 Mild hyponatremia, possibly hypovolemic, sodium level is improved 5 Hypertension 6 Hyperlipidemia 7 Diabetes mellitus type 2 8 Hypothyroidism 10 Osteoarthritis 11 Anxiety Plan: No change in her condition. Remains BiPAP dependent Continue BiPAP and she is a sitting to a BiPAP pressure of 14/10 cm of water with a FiO2 100%. Chest x-ray still showing diffuse bilateral pulmonary infiltrates Continue the supportive care DNR/DNI CODE STATUS Recommend comfort care measures/ end-of-life measures
[2020-12-16] MEDS: CYANOCOBALAMIN 500 MCG TAB PO SCH (11:34)
[2020-12-16] MEDS: busPIRone HCl 10 MG TAB PO SCH (11:34)
[2020-12-16] MEDS: ATORVASTATIN 20 MG TAB PO SCH (11:34)
[2020-12-16] MEDS: amLODIPine 5 MG TAB PO SCH (11:34)
[2020-12-16] MEDS: CHOLECALCIFEROL 25 MCG (1000 IU) TABLET PO SCH (11:34)
[2020-12-16] MEDS: CITALOPRAM HYDROBROMIDE 20 MG TAB PO SCH (11:34)
[2020-12-16] MEDS: ASPIRIN 81 MG PO SCH (11:34)
[2020-12-16] MEDS: ASCORBIC ACID 500 MG TAB PO SCH (11:34)
[2020-12-16] MEDS: PROPRANOLOL 10 MG TAB PO SCH (11:35)
[2020-12-16] MEDS: ZINC SULFATE 220 MG CAP PO SCH (11:35)
[2020-12-16] MEDS: risperiDONE 0.5 MG TAB PO SCH (11:35)
[2020-12-16] MEDS: FAMOTIDINE 20 MG TAB PO SCH (11:35)
[2020-12-16] MEDS: LINAGLIPTIN 5 MG TABLET PO SCH (11:35)
[2020-12-16] MEDS: MULTIVITAMINS, THERA 1 EACH TAB PO SCH (11:35)
[2020-12-16] MEDS: lamoTRIgine 25 MG TAB PO SCH (11:35)
[2020-12-16 11:51] LABS: Glucose,Whole Blood 175 mg/dL (75-99)
[2020-12-16] MEDS: LORazepam 2 MG/ML INJ IV PRN (14:12)
[2020-12-16 17:08] LABS: Glucose,Whole Blood 182 mg/dL (75-99)
--- NOTE | 2020-12-16 19:40 | P.PN ---
Progress Note - Text Progress Note Date: 12/16/20 Chief Complaint: Increase in confusion History of presenting complaint: This is a 75-year-old patient who follows with Dr. Kory Pearce. Chronic stable medical conditions include diabetes, hypertension, hyperlipidemia, prostatitis, hypothyroid. Patient has a baseline dementia. With cognitive impairment. 5 days ago on Monday patient is having upper respiratory tract infection symptoms. Apparently patient tested negative for COVID. Was given antibiotics to go home with. Last night patient became increasingly confused and less responsive. Brought into the ER. Patient is found to be a bit delirious with a fever up to 104.6. And pulse ox this morning was 92% on 3 L. Patient not able to give much of a history. Because underlying dementia. She is only able to answer simple questions. She does not know why she is or why she is here. When I walked in the room she was talking to her on the phone, making simple conversation Admitted with bilateral COVID 19 pneumonia, acute hypoxic respiratory failure, sepsis, acute delirium. Started on IV dexamethasone, subcu Lovenox. Oxygen requirement has been going up. Up to 15 L nasal cannula. Worsening. Placed on BiPAP. I spoke to patient's at length. He understands the guarded prognosis. Today: Remains on BiPAP. Delirious. Short of breath. Poor oral intake because of his pulmonary status. Review of systems: Unable to obtain Active Medications Acetaminophen (Acetaminophen Tab 325 Mg Tab) 650 mg PO Q6HR PRN PRN Reason: Mild Pain or Fever > 100.5 Amlodipine Besylate (Amlodipine 5 Mg Tab) 5 mg PO DAILY [facility] Last Admin: 12/16/20 11:34 Dose: Not Given Documented by: Ascorbic Acid (Ascorbic Acid 500 Mg Tab) 1,000 mg PO DAILY [facility] Last Admin: 12/16/20 11:34 Dose: Not Given Documented by: Aspirin (Aspirin 81 Mg) 81 mg PO DAILY [facility] Last Admin: 12/16/20 11:34 Dose: Not Given Documented by: Atorvastatin Calcium (Atorvastatin 20 Mg Tab) 20 mg PO DAILY [facility] Last Admin: 12/16/20 11:34 Dose: Not Given Documented by: Buspirone HCl (Buspirone Hcl 10 Mg Tab) 10 mg PO BID [facility] Last Admin: 12/16/20 11:34 Dose: Not Given Documented by: Cholecalciferol (Cholecalciferol 25 Mcg (1000 Iu) Tablet) 25 mcg PO DAILY [facility] Last Admin: 12/16/20 11:34 Dose: Not Given Documented by: Citalopram Hydrobromide (Citalopram Hydrobromide 20 Mg Tab) 40 mg PO DAILY [facility] Last Admin: 12/16/20 11:34 Dose: Not Given Documented by: Cyanocobalamin (Cyanocobalamin 500 Mcg Tab) 5,000 mcg PO DAILY [facility] Last Admin: 12/16/20 11:34 Dose: Not Given Documented by: Dexamethasone Sodium Phosphate (Dexamethasone Sod Phosphate 10 Mg/Ml 1 Ml Vial) 6 mg IV DAILY [facility] Last Admin: 12/16/20 08:15 Dose: 6 mg Documented by: Enoxaparin Sodium (Enoxaparin 40 Mg/0.4 Ml Syringe) 40 mg SQ DAILY [facility] Last Admin: 12/16/20 08:15 Dose: 40 mg Documented by: Famotidine (Famotidine 20 Mg Tab) 20 mg PO BID [facility] Last Admin: 12/16/20 11:35 Dose: Not Given Documented by: Haloperidol Lactate (Haloperidol Lactate 5 Mg/Ml 1 Ml Vial) 2 mg IVP Q4HR PRN PRN Reason: Agitation or Acute Psychosis Last Admin: 12/16/20 13:06 Dose: 2 mg Documented by: Sodium Chloride (Saline 0.9%) 1,000 mls @ 130 mls/hr IV .Q7H42M [facility] Last Admin: 12/16/20 14:46 Dose: 130 mls/hr Documented by: Lamotrigine (Lamotrigine 25 Mg Tab) 25 mg PO BID [facility] Last Admin: 12/16/20 11:35 Dose: Not Given Documented by: Levothyroxine Sodium (Levothyroxine 88 Mcg Tab) 88 mcg PO DAILY@0630 [facility] Last Admin: 12/16/20 05:49 Dose: Not Given Documented by: Linagliptin (Linagliptin 5 Mg Tablet) 5 mg PO DAILY [facility] Last Admin: 12/16/20 11:35 Dose: Not Given Documented by: Lorazepam (Lorazepam 2 Mg/Ml Inj) 0.5 mg IV Q8H PRN PRN Reason: Anxiety Last Admin: 12/16/20 14:12 Dose: 0.5 mg Documented by: Multivitamins (Multivitamins, Thera 1 Each Tab) 1 each PO DAILY [facility] Last Admin: 12/16/20 11:35 Dose: Not Given Documented by: Naloxone HCl (Naloxone 0.4 Mg/Ml 1 Ml Vial) 0.2 mg IV Q2M PRN PRN Reason: Opioid Reversal Propranolol HCl (Propranolol 10 Mg Tab) 10 mg PO BID [facility] Last Admin: 12/16/20 11:35 Dose: Not Given Documented by: Risperidone (Risperidone 0.5 Mg Tab) 0.5 mg PO BID [facility] Last Admin: 12/16/20 11:35 Dose: Not Given Documented by: Zinc Sulfate (Zinc Sulfate 220 Mg Cap) 220 mg PO DAILY [facility] Last Admin: 12/16/20 11:35 Dose: Not Given Documented by: Past medical history to include: Diabetes, hypertension, hyperlipidemia, osteoarthritis, hypothyroid, tremor in the left arm, anxiety Social history: Lives with her . Smoking for over 40 years about quarter pack a day. Alcohol rarely. Family history: Patient cannot tell Physical examination: VITAL SIGNS: 98.3, 99, 28, 170/82, 82% on BiPAP 100% GENERAL: Laying in bed, delirious, with a BiPAP LUNGS: Respiratory rate increased, accessory muscles overworking.. PSYCH: Disoriented. NEUROLOGICAL: Cranial nerves grossly intact; no facial asymmetry, moving all 4 limbs Rest of the exam as per pulmonary INVESTIGATIONS, reviewed in the clinical context: December 15: D-dimer 2.7 LDH 1985 CRP 186 December 14: Potassium 4.2 creatinine 0.59 CRP 86.4 December 13: D-dimer 1.5 CRP 68 December 12: D-dimer 1.08 CRP 74.6 WBC 9.5 hemoglobin 14.1 platelets 160 potassium 4.1 creatinine 0.89 Troponin I 0.065, 0.062, UA-negative Coronavirus [PCR]-detected EKG tracing personally reviewed by me-normal sinus rhythm, poor quality baseline Chest x-ray film personally reviewed by me-bilateral infiltrates Assessment and plan: -Acute bilateral COVID 19 pneumonia with symptoms starting about 6 days prior to clinically not improving IV Decadron subcu Lovenox vitamin C vitamin D Zinc Pepcid. -Sepsis from COVID 19 pneumonia IV fluids -Acute hypoxic respiratory failure from not improving 86% on BiPAP at 100% -Acute delirium from sepsis-not improving Follow closely -Major cognitive impairment from underlying Alzheimer's dementia late onset type, with agitation Continue with Loreta Travis -COPD in a current smoker Continue with home inhalers bronchodilators -Chronic nicotine dependence patient cigarette smoker At nicotine patch -Diabetes mellitus type 2 on oral hypoglycemic Expect Accu-Cheks to climb because of dexamethasone. Follow Accu-Cheks and coverage -Hypothyroid Continue with Synthroid -Essential hypertension Continue with amlodipine and propranolol -No code Continues to do poorly. If no improvement in 24 hours would consider hospice./GIP.
[2020-12-16 20:05] LABS: Glucose,Whole Blood 182 mg/dL (75-99)
[2020-12-17] MEDS: lamoTRIgine 25 MG TAB PO SCH ×2 (01:44→07:56)
[2020-12-17] MEDS: busPIRone HCl 10 MG TAB PO SCH ×2 (01:44→07:56)
[2020-12-17] MEDS: FAMOTIDINE 20 MG TAB PO SCH ×2 (01:44→07:56)
[2020-12-17] MEDS: risperiDONE 0.5 MG TAB PO SCH ×2 (01:45→07:57)
[2020-12-17] MEDS: PROPRANOLOL 10 MG TAB PO SCH ×2 (01:45→07:57)
[2020-12-17] MEDS: SODIUM CHLORIDE 0.9% 1,000 ML IV SCH ×4 (01:51→14:11)
[2020-12-17] MEDS: LORazepam 2 MG/ML INJ IV PRN ×2 (03:56→15:16)
[2020-12-17 05:32] LABS: Glucose,Whole Blood 183 mg/dL (75-99)
[2020-12-17] MEDS: LEVOTHYROXINE 88 MCG TAB PO SCH (06:41)
[2020-12-17] MEDS: CITALOPRAM HYDROBROMIDE 20 MG TAB PO SCH (07:56)
[2020-12-17] MEDS: ATORVASTATIN 20 MG TAB PO SCH (07:56)
[2020-12-17] MEDS: amLODIPine 5 MG TAB PO SCH (07:56)
[2020-12-17] MEDS: CHOLECALCIFEROL 25 MCG (1000 IU) TABLET PO SCH (07:56)
[2020-12-17] MEDS: ASPIRIN 81 MG PO SCH (07:56)
[2020-12-17] MEDS: LINAGLIPTIN 5 MG TABLET PO SCH (07:56)
[2020-12-17] MEDS: ASCORBIC ACID 500 MG TAB PO SCH (07:56)
[2020-12-17] MEDS: CYANOCOBALAMIN 500 MCG TAB PO SCH (07:56)
[2020-12-17] MEDS: ZINC SULFATE 220 MG CAP PO SCH (07:57)
[2020-12-17] MEDS: MULTIVITAMINS, THERA 1 EACH TAB PO SCH (07:57)
[2020-12-17] MEDS: ENOXAPARIN 40 MG/0.4 ML SYRINGE SQ SCH (08:30)
[2020-12-17] MEDS: DEXAMETHASONE SOD PHOSPHATE 10 MG/ML 1 ML VIAL IV SCH (08:30)
--- NOTE | 2020-12-17 11:05 | P.PN ---
Subjective Progress Note Date: 12/17/20 75-year-old white female patient who is a poor historian, with past medical history of hypertension, hyperlipidemia, diabetes mellitus, osteoarthritis, hypothyroidism, anxiety, who was brought into the emergency department on 12/11/2020 at 4:00 in the morning per EMS for evaluation of altered mental sta tus. Apparently patient had developed upper respiratory symptoms and was tested for COVID 19 which was reportedly negative. She was given antibiotics for the infection, however she was increasingly more disoriented and last night she was less responsive and she was brought in to be evaluated. Patient tested positive for COVID 19 in the ER. CBC showed white blood cell count of 9.5, hemoglobin is 14.1, d-dimer is 0.48, sodium is 132, the rest of electrolytes were unremarkable, BUN is 23, creatinine is 0.89 plasma lactic acid 0.9. LFTs were within normal limits, there was a troponin leak of 0.065, and 0.062, patient denies any shortness of breath, she seems to be breathing comfortably, she is a poor historian, she is confused, she does not know the place or the mouth or the year or the president, no cough, lung sounds reveal some mild crackles, no wheezing, no cough no hemoptysis, urinalysis is without sign of infection. Patient is currently on 3 L of oxygen pulse ox is 93%. Patient was febrile on presentation with a T-max of 104.6F. Chest x-ray showed mild diffuse airspace opacities in both lungs. While she is resting fairly comfortably on the gurney in the emergency department awaiting a bed to go to medical surgical floor. Progress note dated 12/12/2020. This is a 75-year-old female who was seen by our team yesterday for evaluation. She is a very poor historian, and is very confused. She has a history of hypertension diabetes, hyperlipidemia, osteoarthritis, hypothyroidism, and anxiety. She was brought into the emergency department by EMS for altered mental status. Apparently, the patient developed upper respiratory tract symptoms, and was tested for coronavirus, and apparently initially tested negative. In the ER, on this admission, the patient did test positive. She is very confused. She has a sitter in the room. She is on 3 L nasal cannula. She is not manifesting any signs or symptoms of respiratory distress. Labs today include a d-dimer which is 1.08, a glucose which is 128, and a C-reactive protein which is 75. Computed tomography scan of the brain showed moderate bifrontal atrophy and moderate patchy small vessel ischemic changes. Chest x- ray shows patchy bilateral infiltrates. The patient is seen today 12/13/2020 in follow-up on the selective care unit. She is currently resting in bed. Quite restless. She does have significant dementia she is confused and disoriented. Her is at the bedside now. She is requiring 15 L high flow nasal cannula plus a nonrebreather mask to maintain O2 saturations in the low 80s. D-dimer 1.50. C-reactive protein 68.1. Blood glucose 125. She is continued on vitamin supplements, Decadron, Lovenox. On 12/14/2020 the patient is being seen in follow-up. The patient was hospita lized with COVID 19 related pneumonia and the patient also had altered mental status. ptocal level was 0.1. CRP was elevated at 68. The patient checked positive for COVID 19 infection. The patient currently is on Decadron 6 IV every 24 hours. The patient is also on Lovenox 40 mg subcu every 24 hours. Computed tomography scan of the brain showed moderate bilateral atrophy and moderate patchy burden of chronic small vessel ischemic disease. I could've her mouth is a been noted. The patient is known to have multiple comorbidities including hypertension, hyperlipidemia, diabetes mellitus, hypothyroidism and chronic anxiety. There may be also a component of dementia. She is a poor h istorian. She was O2 15 by nasal cannula and addition to a nonrebreather facemask to maintain a saturation above 90%. Currently, overnight, the patient decompensated and the patient went on a BiPAP and the current BiPAP settings are 12/6 with an FiO2 of 100%. The generator tidal volume is in order of 590 mL with a respiratory rate of 31 and a minute ventilation of 17.9. The patient's chest x-ray is showing interval worsening of the bilateral pulmonary infiltrates and infiltrates are quite extensive involving both lungs. There is moderate to diffuse bilateral interstitial infiltrates On 12/15/2020 patient is being seen for a follow-up. The patient remains on BiPAP at a pressure of 12/6 cm of water. The patient is able to generate a tidal volume of 475 with a rate of 35. Her current FiO2 on the BiPAP machine is around 100% and her pulse ox is around 82%. She is synchronous with the BiPAP mask. She remains on Decadron 6 mg IV every 24 hours. She is also on Lovenox 40 mg subcu every 24 hours and she is also on normal saline at the rate of 100 mL an hour. Mental status is still altered. Note that the patient has some dementia. Her d-dimer today's at 2.7 the patient's LDH level was 195 and the CRP is at 186 and the inflammatory markers are still elevated. Function is s table. Electrolytes are stable. Chest x-ray from yesterday showed moderate to severe bilateral infiltrates throughout the lung redmond bilaterally. PH looks quite debilitated. Her breathing is somewhat labored even on the BiPAP. Pulse ox in the mid 80s. I made recommendations for comfort care measures if the is quite hesitant to take that option. She is a DNR/DNI CODE STATUS. She does have underlying dementia and significant impairment of cognitive functions. 12/16/2020, the patient is still doing poorly. No change in her condition. She was quite agitated earlier today and the patient was given Haldol to control her agitation. Chest x-ray still showing diffuse bilateral pulmonary infiltrates and infiltrates are probably less dense compared to the earlier chest x-ray from a few days ago. Otherwise, the patient is doing poorly. She is on a BiPAP at a pressure of 14/10 cm of water with a FiO2 of 100%. She remains on Decadron. She remains on Lovenox. She remains on IV fluid with normal saline. Mentally she is altered. She does not follow commands pH is agitated. She is a DNR/DNI CODE STATUS.There markers are on the rise including CRP which is up to 186 and the LDH is up to 1985. 12/17/2020, clinically unchanged, remains BiPAP dependent at a pressure of 14/10 with an FiO2 of 100%.. Neurologically, altered and the patient is very much lethargic, barely responsive to painful or verbal stimulation. We saw this patient yesterday. She is a DNR/DNI CODE STATUS. I have made recommendations for end-of-life care. The family has not made her mind yet. As such, the patient still being supported here on the medical floor with BiPAP. Her pulse ox is currently at 82% on above-mentioned ventilator setting. She is able to generate a tidal volume of 650, her current respiratory rate is in the mid 30s. She is in mild degree of respiratory distress. She is also using abdominal muscles of breathing and she is obviously and respiratory insufficiency/failure Objective - Vital Signs Vital signs: Vital Signs Temp 98.4 F 12/17/20 08:00 Pulse 100 12/17/20 08:00 Resp 30 H 12/17/20 08:00 BP 189/84 12/17/20 08:00 Pulse Ox 82 L 12/17/20 08:00 Intake & Output 12/16/20 12/17/20 12/17/20 18:59 06:59 18:59 Output Total 400 Balance -400 Weight 74.3 kg Output: Urine 400 Other: Voiding Method External Catheter External Catheter External Catheter - Exam GENERAL EXAM: Alert, confused, disoriented 75-year-old female patient, on BiPAP of 17/06 with an FiO2 of 100%, quite lethargic, very slow in response. No agitation for now and there is a sitter at the bedside. The patient is quite thickened In [id number] degree of respiratory distress. There is some use of accessory muscles of breathing. No change in her condition. She is absolutely BiPAP dependent and she desaturates easily when she is moved within the bed. She was quite agitated earlier she was given Haldol and currently she is more sedated. HEAD: Normocephalic. EYES: Normal reaction of pupils, equal size. NOSE: Clear with pink turbinates. THROAT: No erythema or exudates. NECK: No masses, no JVD. CHEST: No chest wall deformity. LUNGS: Equal air entry with crackles in the bilateral posterior bases. CVS: S1 and S2 normal with no audible murmur, regular rhythm. ABDOMEN: No hepatosplenomegaly, normal bowel sounds, no guarding or rigidity. SPINE: No scoliosis or deformity SKIN: No rashes CENTRAL NERVOUS SYSTEM: No focal deficits, tone is normal in all 4 extremities. EXTREMITIES: There is no peripheral edema. No clubbing, no cyanosis. Peripheral pulses are intact. - Labs CBC & Chem 7: 12/11/20 04:41 12/15/20 05:33 Labs: Abnormal Lab Results - Last 24 Hours (Table) 04/12/16/20 12/16/20 Range/Units 11:41 17:06 20:03 POC Glucose (mg/dL) 175 H 182 H 182 H (75-99) mg/dL 12/17/20 Range/Units 05:31 POC Glucose (mg/dL) 183 H (75-99) mg/dL Microbiology - Last 24 Hours (Table) 12/11/20 04:45 Blood Culture - Final Blood No Growth after 144 hours 12/11/20 04:30 Blood Culture - Final Blood No Growth after 144 hours Assessment and Plan Plan: 1 Altered mental status, of unclear etiology, CAT scan of the brain is showing chronic small vessel ischemic changes and severe atrophy. There may be an underlying dementia in addition to Covid 19 related encephalopathy. Neurologically, still impaired and unchanged and there is a sitter at the bedside. 2 Acute COVID 19 pneumonia with hypoxic respiratory failure, the onset of symptoms is unclear. Patient is a poor historian, she had a positive COVID 19 test last Monday 6 days ago after having symptoms of upper respiratory infection. The timeline of symptom onset is unclear. The patient has acute hypoxic respiratory failure and the patient has transitioned from high flow oxygen and to a BiPAP at a pressure of 14/10 cm of water with an FiO2 of 100%. In addition, the chest x-ray shows significant worsening of the back to pulmonary infiltrates. Note that the patient's condition essentially unchanged. The patient is very much BiPAP dependent. Pulse ox is in the mid 80s even on 100% FiO2. Nevertheless, the patient's long-term prognosis poor based on her underlying COVID related pneumonia and poor baseline performance and functional status and underlying dementia. Overall, there has been no change in her condition since yesterday. I'm seeing her today in follow-up. My recommendations are end-of-life care. 3 Mild troponin leak, echocardiogram showing normal ventricular ejection fraction, EF is about 55% 4 Mild hyponatremia, possibly hypovolemic, sodium level is improved 5 Hypertension 6 Hyperlipidemia 7 Diabetes mellitus type 2 8 Hypothyroidism 10 Osteoarthritis 11 Anxiety Plan: We'll contact the again who is currently at home with Covid 19. My recommendations are end-of-life care. I don't think the patient is going to survive this Covid 19 related pneumonia. She is still on BiPAP for supportive care. Prognosis is extremely poor. DNR/DNI CODE STATUS Recommend comfort care measures/ end-of-life measures
[2020-12-17 11:08] LABS: African American GFR (CKD) >90 (>60 ml/min/1.73 sqM); Anion Gap 7 mmol/L; Blood Urea Nitrogen 24 mg/dL (7-17); Calcium 8.6 mg/dL (8.4-10.2); Carbon Dioxide 26 mmol/L (22-30); Chloride 110 mmol/L (98-107); Glucose 200 mg/dL (74-99); Non-African American GFR(CKD) >90 (>60 ml/min/1.73 sqM); Potassium 3.8 mmol/L (3.5-5.1); Sodium 143 mmol/L (137-145)
[2020-12-17 11:44] LABS: Glucose,Whole Blood 210 mg/dL (75-99)
[2020-12-17 12:20] LABS: LDH 2679 U/L (313-618)
[2020-12-17 12:21] LABS: C Reactive Protein 156.6 mg/L (<10.0)
[2020-12-17 14:04] VITALS: BMI 32.0
[2020-12-17] MEDS: HALOPERIDOL LACTATE 5 MG/ML 1 ML VIAL IVP PRN (14:39)
[2020-12-17 14:43] VITALS: BP 182/103; TEMP 99.4
[2020-12-17] MEDS ORDERED: LORazepam 2 MG/ML INJ IV PRN (15:48)
[2020-12-17] MEDS ORDERED: MORPHINE SULFATE 2 MG/ML SYRINGE IV PRN ×2 (15:48→16:38)
[2020-12-17] MEDS ORDERED: SCOPOLAMINE 1.5MG/72HR PATCH TRANSDERM SCH (16:30)
[2020-12-17] MEDS ORDERED: MORPHINE SULFATE (100 MG/2 ML) 100 MG in SODIUM CHLORIDE 0.9% 100 ML IV SCH (17:00)
[2020-12-17 20:39] VITALS: PULSE 37; RESP 8
--- NOTE | 2020-12-19 00:47 | P.DS ---
Providers Date of admission: 12/11/20 06:34 Expected date of discharge: 12/17/20 Attending physician: Perry Montesinos Consults: 12/11/20 06:33 Consult Physician Routine Consulting Provider: Jt Leonard Consult Reason/Comments: Covid pneumonia Do you want consulting provider notified?: Yes 12/11/20 16:32 Consult Physician Routine Consulting Provider: Vitaliy Valdez Consult Reason/Comments: positive trops Do you want consulting provider notified?: Yes Primary care physician: Kory Pearce [facility] Course: Chief Complaint: Increase in confusion History of presenting complaint: This is a 75-year-old patient who follows with Dr. Kory Pearce. Chronic stable medical conditions include diabetes, hypertension, hyperlipidemia, prostatitis, hypothyroid. Patient has a baseline dementia. With cognitive impairment. 5 days ago on Monday patient is having upper respiratory tract infection symptoms. Apparently patient tested negative for COVID. Was given antibiotics to go home with. Last night patient became increasingly confused and less responsive. Brought into the ER. Patient is found to be a bit delirious with a fever up to 104.6. And pulse ox this morning was 92% on 3 L. Patient not able to give much of a history. Because underlying dementia. She is only able to answer simple questions. She does not know why she is or why she is here. When I walked in the room she was talking to her on the phone, making simple conversation Admitted with bilateral COVID 19 pneumonia, acute hypoxic respiratory failure, sepsis, acute delirium. Started on IV dexamethasone, subcu Lovenox. Oxygen requirement has been going up. Up to 15 L nasal cannula. Worsening. Placed on BiPAP. I spoke to patient's at length. He understands the guarded prognosis. Today:patient patient continued do poorly. was called in. Patient remained on BiPAP. Hospice was consulted. As would be imminent patient is put on comfort measures. Case management was involved. Patient succumbed at the same Discussion and discharge planning more than 35 minutes Consultation: Dr. Reeves and partners from pulmonary Past medical history to include: Diabetes, hypertension, hyperlipidemia, osteoarthritis, hypothyroid, tremor in the left arm, anxiety Social history: Lives with her . Smoking for over 40 years about quarter pack a day. Alcohol rarely. Family history: Patient cannot tell Physical examination: Early in the day patient was short of breath. DEXA same muscle working on BiPAP. INVESTIGATIONS, reviewed in the clinical context: December 15: D-dimer 2.7 LDH 1985 CRP 186 December 14: Potassium 4.2 creatinine 0.59 CRP 86.4 December 13: D-dimer 1.5 CRP 68 December 12: D-dimer 1.08 CRP 74.6 WBC 9.5 hemoglobin 14.1 platelets 160 potassium 4.1 creatinine 0.89 Troponin I 0.065, 0.062, UA-negative Coronavirus [PCR]-detected EKG tracing personally reviewed by me-normal sinus rhythm, poor quality baseline Chest x-ray film personally reviewed by me-bilateral infiltrates Cause of : COVID 19 pneumonia Other medical problems: -Acute bilateral COVID 19 pneumonia with symptoms starting about 6 days prior to clinically not improving IV Decadron subcu Lovenox vitamin C vitamin D Zinc Pepcid. -Sepsis from COVID 19 pneumonia IV fluids -Acute hypoxic respiratory failure from not improving 86% on BiPAP at 100% -Acute delirium from sepsis-not improving Follow closely -Major cognitive impairment from underlying Alzheimer's dementia late onset type, with agitation Continue with Namenda, Seroquel -COPD in a current smoker Continue with home inhalers bronchodilators -Chronic nicotine dependence patient cigarette smoker At nicotine patch -Diabetes mellitus type 2 on oral hypoglycemic Expect Accu-Cheks to climb because of dexamethasone. Follow Accu-Cheks and coverage -Hypothyroid Continue with Synthroid -Essential hypertension Continue with amlodipine and propranolol -No code Disposition: Patient Plan - Discharge Summary Discharge Rx Participant: Yes New Discharge Prescriptions: No Action Levothyroxine Sodium [Synthroid] 88 mcg PO DAILY lamoTRIgine [LaMICtal] 25 mg PO BID Multivitamins, Thera [Multivitamin (formulary)] 1 tab PO DAILY Cyanocobalamin (Vitamin B-12) [Vitamin B12] 5,000 mcg PO DAILY Aspirin 81 mg PO DAILY Citalopram Hydrobromide [CeleXA] 40 mg PO DAILY Propranolol [Inderal] 10 mg PO BID busPIRone HCL 10 mg PO BID Omeprazole [PriLOSEC] 20 mg PO AC-BRKFST amLODIPine [Norvasc] 5 mg PO DAILY QUEtiapine [SEROquel] 25 mg PO HS Pioglitazone [Actos] 15 mg PO DAILY Memantine [Namenda] 10 mg PO BID Cholecalciferol [Vitamin D3 (25 Mcg = 1000 Iu)] 50 mcg PO DAILY Magnesium Oxide [Magox 400] 400 mg PO DAILY Fluticasone/Umeclidin/Vilanter [Trelegy Ellipta 100-62.5-25] 1 puff INHALATION RT-DAILY Azithromycin [Zithromax Z-pack (6 tabs)] See Taper PO DIRECTED Dexamethasone [Decadron] 6 mg PO DAILY Discharge Medication List Aspirin 81 mg PO DAILY 06/13/18 [History] Citalopram Hydrobromide [CeleXA] 40 mg PO DAILY 06/13/18 [History] Cyanocobalamin (Vitamin B-12) [Vitamin B12] 5,000 mcg PO DAILY 06/13/18 [History] Levothyroxine Sodium [Synthroid] 88 mcg PO DAILY 06/13/18 [History] Multivitamins, Thera [Multivitamin (formulary)] 1 tab PO DAILY 06/13/18 [History] Omeprazole [PriLOSEC] 20 mg PO AC-BRKFST 06/13/18 [History] Propranolol [Inderal] 10 mg PO BID 06/13/18 [History] amLODIPine [Norvasc] 5 mg PO DAILY 06/13/18 [History] busPIRone HCL 10 mg PO BID 06/13/18 [History] lamoTRIgine [LaMICtal] 25 mg PO BID 06/13/18 [History] Azithromycin [Zithromax Z-pack (6 tabs)] See Taper PO DIRECTED 12/11/20 [History] Cholecalciferol [Vitamin D3 (25 Mcg = 1000 Iu)] 50 mcg PO DAILY 12/11/20 [History] Dexamethasone [Decadron] 6 mg PO DAILY 12/11/20 [History] Fluticasone/Umeclidin/Vilanter [Trelegy Ellipta 100-62.5-25] 1 puff INHALATION RT-DAILY 12/11/20 [History] Magnesium Oxide [Magox 400] 400 mg PO DAILY 12/11/20 [History] Memantine [Namenda] 10 mg PO BID 12/11/20 [History] Pioglitazone [Actos] 15 mg PO DAILY 12/11/20 [History] QUEtiapine [SEROquel] 25 mg PO HS 12/11/20 [History] Follow up Appointment(s)/Referral(s): Kory Pearce MD [Primary Care Provider] - 1-2 days Discharge Disposition: - Preliminary Cause of Preliminary Cause of : COVID 19 pneumonia
== END 2020-12-17 22:45 | disposition expired | DRG 871 ==
LOC: EC 03:52 → 3SCARD 06:34
PROVIDERS: ADMIT Hospitalist; ATTEND Hospitalist
PROC: 3E0333Z Introduction of Anti-inflammatory into Peripheral Vein, Percutaneous Approach (ICD-10-PCS; 2020-12-11)
PROC: 5A0935A Assistance with Respiratory Ventilation, Less than 24 Consecutive Hours, High Flow/Velocity Cannula (ICD-10-PCS; 2020-12-12)
PROC: 5A09557 Assistance with Respiratory Ventilation, Greater than 96 Consecutive Hours, Continuous Positive Airway Pressure (ICD-10-PCS; principal; 2020-12-13)
DX: A41.89 Other specified sepsis (principal); U07.1 COVID-19; J12.82 Pneumonia due to coronavirus disease 2019; J96.01 Acute respiratory failure with hypoxia; G93.41 Metabolic encephalopathy; F05 Delirium due to known physiological condition; E87.1 Hypo-osmolality and hyponatremia; J44.0 Chronic obstructive pulmonary disease with (acute) lower respiratory infection; F02.81 Dementia in other diseases classified elsewhere, unspecified severity, with behavioral disturbance; Z51.5 Encounter for palliative care; Z79.82 Long term (current) use of aspirin; Z66 Do not resuscitate; Z79.890 Hormone replacement therapy; E11.9 Type 2 diabetes mellitus without complications; E78.5 Hyperlipidemia, unspecified; I10 Essential (primary) hypertension; M19.90 Unspecified osteoarthritis, unspecified site; G30.1 Alzheimer's disease with late onset; F17.210 Nicotine dependence, cigarettes, uncomplicated; E03.9 Hypothyroidism, unspecified; F41.9 Anxiety disorder, unspecified; Z90.710 Acquired absence of both cervix and uterus; Z79.84 Long term (current) use of oral hypoglycemic drugs; Z79.01 Long term (current) use of anticoagulants; R25.1 Tremor, unspecified; Z79.899 Other long term (current) drug therapy; Z88.8 Allergy status to other drugs, medicaments and biological substances
CPT/HCPCS: 36415; 70450; 71045; 80048; 80053; 81003; 83605; 83615; 83880; 84145; 84484; 85025; 85379; 85610; 85730; 86140; 87040; 87635; 93005; 93306; 94660; 96374; 99285